=== PATIENT | female | born 1985 | race Caucasian/White ===

== ENCOUNTER 2023-09-17 09:24 | Outpatient (OUT) | payer BC, SELFPAY ==
--- NOTE | 2023-09-17 | US_ITS ---
[address] [address] Patient Name: FRANCHESCA RUIZ MRN: [id number] date: 1985 Sex: F Assigned Patient Location: US Current Patient Location: US Accession/Order Number: [id number] Exam Date: 09/17/2023 09:50 Report Date: 09/17/2023 11:48 At the request of: COLBY RAE Procedure: US pelvis transvaginal EXAMINATION: US pelvis transvaginal HISTORY: Menorrhagia with irregular cycle N92.1 COMPARISON: No relevant comparison available. TECHNIQUE: Transabdominal and/or transvaginal sonographic examination was performed as indicated by examination type. FINDINGS: UTERUS: Slightly heterogeneous myometrium. 1.5 cm slightly hyperechoic area within anterior uterine wall favoring a leiomyoma. Uterus size: 9.3 x 5.0 x 6.1 cm. ENDOMETRIUM: Normal homogeneous appearance. Trace amount of fluid within endometrial cavity, likely blood products. Endometrial thickness: 6 mm RIGHT OVARY: Normal size and appearance. Duplex Doppler demonstrates normal waveform and flow; resistive index 0.6. Ovary size: 2.7 x 2.3 x 3.67 m LEFT OVARY: Contains a 3.6 cm benign-appearing cyst. Duplex Doppler demonstrates normal waveform and flow; resistive index 0.5. Ovary size: 4.4 x 2.7 x 4.3 cm CUL-DE-SAC: Unremarkable. No significant free fluid. BLADDER: Unremarkable. OTHER: None. US/US pelvis transvaginal IMPRESSION: 1. No specific findings to account for patient's symptoms. 2. Small leiomyoma within anterior uterine wall, but this does not appear to contact the endometrial margin. 3. Incidental cyst within left ovary. Electronically authenticated by: TRACY WEBB Date: 09/17/2023 11:48
[2023-09-17 10:15] LABS: Basophils Absolute Auto 0.1 10^3/uL (0.0-0.1); Basophils Percent Auto 0.7 % (0.2-2.0); Eosinophils Absolute Auto 0.1 10^3/uL (0.0-0.7); Eosinophils Percent Auto 1.2 % (0.9-7.0); Hematocrit 35.4 % (36.0-48.0); Hemoglobin 11.6 g/dL (12.0-16.0); Immature Granulocytes Abs Auto 0.02 10^3/uL (0.00-0.03); Immature Granulocytes Pct Auto 0.3 % (0.0-0.5); Lymphocytes Absolute Auto 1.3 10^3/uL (1.2-3.8); Lymphocytes Percent Auto 18.5 % (20.5-60.0); Mean Corpuscular HGB Conc 32.8 g/dL (29.9-35.2); Mean Corpuscular Hemoglobin 30.8 pg (26.7-34.0); Mean Corpuscular Volume 93.9 fL (81.0-99.0); Mean Platelet Volume 9.1 fL (9.5-13.5); Monocytes Absolute Auto 0.6 10^3/uL (0.3-0.8); Monocytes Percent Auto 8.4 % (1.7-12.0); Neutrophils Absolute Auto 4.9 10^3/uL (1.4-6.5); Neutrophils Percent Auto 70.9 % (43.0-75.0); Platelet Count 286 10^3/uL (150-450); Red Blood Count 3.77 10^6/uL (4.20-5.40); Red Cell Distribution Width 13.2 % (11.0-15.0); White Blood Count 6.9 10^3/uL (4.0-11.0)
[2023-09-17 10:21] LABS: INR 0.96; Partial Thromboplastin Time 26.3 sec (22.3-36.2); Prothrombin Time 10.2 sec (9.0-11.6)
[2023-09-17 10:33] LABS: Estimated Average Glucose 94 mg/dL; Glycohemoglobin A1C 4.9 % (4.5-6.2)
[2023-09-17 10:44] LABS: HCG Quantitative <1 mIU/mL; Thyroid Stimulating Hormone 0.713 uIU/mL (0.358-3.740)
[2023-09-17 10:47] LABS: Free T4 0.84 ng/dL (0.76-1.46)
== END 2023-09-17 09:25 | disposition home or self-care (01) ==
PROVIDERS: PCP Internal Medicine; Visit Provider Obstetrics & Gynecology
DX: N92.1 Excessive and frequent menstruation with irregular cycle (principal); R87.619 Unspecified abnormal cytological findings in specimens from cervix uteri; B97.7 Papillomavirus as the cause of diseases classified elsewhere; N94.10 Unspecified dyspareunia; N94.6 Dysmenorrhea, unspecified; N83.292 Other ovarian cyst, left side
CPT/HCPCS: 36415; 76830; 83036; 84439; 84443; 84702; 85025; 85610; 85730

== ENCOUNTER 2023-09-20 11:57 | Outpatient (REF) | payer BC, SELFPAY | END 2023-09-20 11:58 | disposition home or self-care (01) | LOC: LAB 11:57 | PROVIDERS: PCP Internal Medicine; Visit Provider Obstetrics & Gynecology | DX: N92.0 Excessive and frequent menstruation with regular cycle (principal) | CPT/HCPCS: 88305 ==

== ENCOUNTER 2023-10-05 14:11 | Outpatient (OUT) | payer BC, SELFPAY ==
--- NOTE | 2023-10-05 14:53 | ECG_ITS ---
[facility] Test Date: 2023-10-05 Pat Name: FRANCHESCA RUIZ Department: Room: - Gender: Female Checker Product Design: : 1985 Requested By: SHAIKH RAMONA Order Number: [id number] Reading MD: SHAYNA CHADWICK Measurements Intervals [place] Rate: 65 P: 60 [place]: 179 QRS: 56 QRSD: 89 T: 51 QT: 366 QTc: 383 Interpretive Statements SINUS RHYTHM No previous ECG available for comparison Electronically Signed On 10-06-2023 6:43:55 EDT by SHAYNA CHADWICK
== END 2023-10-05 14:12 | disposition home or self-care (01) ==
PROVIDERS: PCP Internal Medicine; Visit Provider Obstetrics & Gynecology
DX: Z01.810 Encounter for preprocedural cardiovascular examination (principal); N92.0 Excessive and frequent menstruation with regular cycle; N93.9 Abnormal uterine and vaginal bleeding, unspecified; R10.2 Pelvic and perineal pain
CPT/HCPCS: 93005

== ENCOUNTER 2023-10-14 07:09 | Day surgery (SDC) | payer BC, SELFPAY ==
[2023-10-05 14:58] VITALS: BP 132/79; PULSE 74; TEMP 36.6; O2SAT 98; BMI 25.5
--- OUTSIDE RECORDS SUMMARY | 2023-10-14 07:13 | XMS_ITS | CCD ---
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 diagnostic evaluation to determine best treatment options. After patient assessment clarifies whether or not 2 AEDs tried were sufficient dosing and ineffective, this VEEG admission may potentially be considered for presurgical evaluation (phase 1.0). Summary: Onset: 33yo Recent Seizure Frequency: daily spells to 3-5 daily Seizure Description(s) Available: Type A: patient's description: Epigastric aura (butterfly feeling in the stomach) -> spaces out -> hands are shaking, unresponsive Post Episode: cannot recall the event/spell, otherwise returned to baseline Duration: a few seconds Trigger: stress Type B: per ED visit sz description, 12/30/18: takes longer for her to former thoughts. She states this usually occurs when she is under a great deal of stress or having issues with her anxiety Current AED(s): Aptiom (started 02/2019) Previous AED(s): GBP Prior Neurosurgery: NONE Implanted Medical Devices: NONE PMH: Altered mental status (ED visit, 12/30/18), Anxiety PRIOR EVALUATIONS: ? EEG (02/13/19, [facility]): per report IMPRESSION: Abnormal EEG. Multiple sharp waves localizing to right temporal lobe (T4 mostly) with a few with olebf-jvj-clha morphology. None of her typical events were captured. Concerning for underlying structural issue or temporal lobe epilepsy. ? MRI Brain W/WO contrast (02/23/19, [facility]): per report IMPRESSION: 1. Chiari I malformation. 2. Otherwise unremarkable exam. ? CT brain WO contrast (08/24/16, Between): per report IMPRESSION: Normal CT head ? CT brain WO contrast (12/19/15, Between): per report IMPRESSION: NORMAL UNENHANCED CT SCAN OF THE BRAIN. NO EVIDENCE OF AN INTRACRANIAL HEMORRHAGE OR HEMATOMA. Referring MD: Dr. Sonam Menjivar MOTHER BABY RN Recommendations: - Intake to request OSH MRI brain on CD (02/23/19, [facility]) - 3T MRI brain, epilepsy protocol - Visit with any epileptologist - Same day diagnostic EMU admission (potentially presurgical eval, if indicated by AED hx) - Epilepsy clinicians to determine f/u plan and consider further w/u, as clinically indicated. -Steve Rubin RN, MSN, C-CHARGE OUT CLERK March 16, [address] Moore for review and recommendations. PLAN (as discussed with Dr. Moore): == Normal [facility] Anai 03-13-2019 CNPN Telephone (NIQ) TANYA RUIZ ([id number]) 1985 F Date Time Provider Department 03/13/19 RUTHY MOORE During your visit today, we recorded the following information about you: Bita Briseno 03/13/2019 2:37 PM Signed [facility] Initial Intake Interview March 13, 2019 2:25 PM Caller: Tanya Relationship to pt: self === Patient name: Tanya Ruiz Age: [age] year old Address: [address] [place] [address] (home) Insurance: Payor: CIGNA / Plan: CIGNA OAP / Product Type: PPO / Referred by: Physician: Dr. Sonam Menjivar Referring to: Any Reason for Evaluation: further evaluation and treatment to determine why daily events are occurring Previously evaluated at: Dr. Sonam Menjivar [facility] [address] [facility] [place] [address] === Age AND date of onset of seizures/spells: 33 years old,; December 2018 Frequency: daily spells Prior to the spells, butterfly feeling in the stomach - space out - hands are shaking - unresponsive - duration a few second Afterwards - cannot recall the event/spell Recent injuries (within last 6 months)? No Recent surgeries (within the last 6 weeks)? No Seizure medications Current medications: - Aptiom (started February 2019) Past medications: - Gabapentin Additional medications n/a Developmental disabilities? No Previous neurosurgery? No Implants (VNS/shunt/orthodonti c hardware)? No Would patient require anaesthesia or sedation? No Additional pertinent medical information: n/a === Test Yes or No Date Facility EEG Yes 02/2019 [facility] Video EEG No MRI Yes 02/2019 [facility] fMRI No [facility] No PET No Ictal SPECT No Invasive EEG No Neuropsychological evaluation No Signed: Bita Briseno 03/13/2019 2:37 PM Addendum OSH records received: March 13, 2019 - MRI Brain report- Care Everywhere - CT Head report- Care Everywhere PENDING: - Clinical notes [place] COORD 03/15/2019 2:20 PM Signed OSH records received: March 15, 2019 -eeg PENDING: -addtl clinical notes [facility] [place] [facility] [place] [facility] 03/20/2019 12:04 PM Signed Sent medical records request to [facility] [place] [facility] [place] CO[facility] 03/23/2019 4:40 PM Signed Images were pushed [facility] [place] CO[facility] Allergies As of Date: 03/13/2019 (Not on File) Date Reviewed: Never Reviewed Reason for Visit: Future Appointment [256] Cmt: [place], Any Problem List As Of Date: 03/13/2019 (None) Encounter Status:Closed by BITA BRISENO on 03/13/19 Normal [facility] MR-MR BRAIN W WO CONT IMPORT on 02-23-2019 MR-MR BRAIN W WO CONT IMPORT Images were obtained outside of [facility] [id number] Normal [facility] Vital Signs Date Time Vital Sign Value Performing Clinician Slim austin 10-09-2019 15:15-0400 Body Temperature 98.29 [degF] [facility] [place] 10-09-2019 15:15-0400 BP Diastolic 81 mm[facility]Hg[facility] [place] 10-09-2019 15:15-0400 BP Systolic 138 mm[Hg] Evelina [facility] , [place] 10-09-2019 15:15-0400 Pulse (Heart Rate) 88 /min Evelina Rodriguez [place], [place] 10-09-2019 15:15-0400 Pulse Oximetry 99 % Evelina Rodriguez [place], [place] 10-09-2019 15:15-0400 Respiratory Rate 14 /min Evelina Rodriguez [facility] H, CARLOS EDUARDO Encounters Encounter Date Encounter Type Care Provider Facility Start: 09-20-2023 End: 09-20-2023 ambulatory COLBY KOBI Not Available Start: 09-20-2023 End: 09-20-2023 ambulatory Colby Kobi Work Phone: [facility] Work Phone: Start: 09-20-2023 End: 09-20-2023 Departed Referred Colby Chango Work Phone: [facility] Start: 08-29-2023 End: 08-29-2023 ambulatory COLBY KOBI Not Available Start: 08-01-2023 End: 08-02-2023 ambulatory ALVAREZ L FLORO Not Available Start: 07-18-2023 End: 07-18-2023 ambulatory PLUNKETT FAWWAD Not Available Start: 06-30-2023 End: 07-01-2023 ambulatory ALVAREZ L FLORO Not Available Start: 05-11-2023 End: 05-11-2023 ambulatory PLUNKETT FAWWAD Not Available Start: 01-13-2023 End: 01-13-2023 Emergency department patient visit ABBY~[id number] JANETDHAVAL [facility] Start: 07-10-2021 End: 07-10-[address] BENITA VALENTINO Facility: Start: 10-09-2019 End: 10-09-2019 Emergency department patient visit Evelina Rodriguez Work Phone: [facility] ED Plan of Treatment Date Care Activity Detail Author Start: 02-12-2020 Influenza vaccination Flu vacc ine (Season Ended) [place], [place] Start: 12-07-2008 Screening for malign ant neoplasm of cervix Cervical cancer screen [place], [place] Start: 12-07-2006 DTaP/Tdap/Td vaccine (1 - Tdap) DTaP/Tdap/Td vaccine (1 - Tdap) [place] Start: 12-07-1988 Varicella vaccine (1 of 2 - 2-dose childhood series) Varicella vaccine (1 of 2 - 2-dose childhood series) [place] End: 10-09-2019 Basic metabolic 2000 panel Basic Metabolic Panel Lab STAT One Time for 1 Occurrences starting 10/09/2019 until 10/09/2019 [place] Comment on above: One Time for 1 Occur rences starting 10/09/2019 until 10/09/2019 End: 10-09-2019 CBC CBC Lab STAT One Time for 1 Occurrences starting 10/09/2019 until 10/09/2019 [place] Comment on above: One Time for 1 Occur rences starting 10/09/2019 until 10/09/2019 End: 10-09-2019 CT PELVIS W CONTRAST Additional Contrast? None CT PELVIS W CONTRAST Additional Contrast? None Imaging Routine Once for 1 Occurrences starting 10/09/2019 until 10/09/2019 [place] Comment on above: Once for 1 Occurrenc es starting 10/09/2019 until 10/09/2019 End: 10-09-2019 HCG Qualitative, Serum HCG Qualitative, Serum Lab STAT One Time for 1 Occurrences starting 10/09/2019 until 10/09/2019 [place] Comment on above: One Time for 1 Occur rences starting 10/09/2019 until 10/09/2019 Payers Date Payer Category Payer Self-pay [id number] 2023 Unknown [id number] 2022 Unknown [id number] 2019 Unknown [facility] xxxxxxxxxxxx 2019-Present [phone] [address] [place] [address] xxxxxxxxxxxx [id number] 2014 Private Health Insurance CIGNA CIGNA HMO xxxxxxxxxxx 2014-Present [phone] [address] [place] [address] xxxxxxxxxxx [id number] 1987 Unknown [id number] 1987 Unknown [id number] .173 1987 Unknown [id number] [id number] .1259 1987 Unknown [id number] [id number] .1259 1987 Unknown [id number] [id number] .1259 1987 Unknown [id number] [id number] .1259 1987 Unknown [id number] 2.16.840.1.399329.3.579.2 .1259 1987 Unknown [id number] [id number] .1259 1959 Unknown [id number] 1959 Unknown [id number] Unknown [id number] Unknown [id number] .531 Social History Date Type Detail Facility [facility]: [facility] [place] History of tobacco use Cigarette Smoker M [place], [place] Start: 08-24-2016 Cigarettes smoked current (pack per day) - Reported [place] Start: 08-24-2016 Alcohol intake Current drinke r of alcohol (finding) [place] Start: 12-19-2015 [facility] [place] [place] Sex Assigned At Not on file [place] Exposure to SARS-CoV -2 (event) [facility] Start: 05-13-2020 Tobacco smoking stat us [facility] Ex-smoker (finding) [facility] Start: 1985 Sex Assigned At Female F [facility] Clinical Note 06-23-2022 Note Date & Type Note Facility 06-23-2022 Note HISTORY: Bone densit y screening. PROCEDURE: Imaging of the lumbar spine was obtained for bone density evaluation. FINDINGS: REGION BMD (g/cm??) YOUNG ADULT T-SCORE AGE-MATCHED Z-SCORE LUMBAR (L1-L4) 0.861 -1.7 -1.6 The mean BMD and corresponding T-score listed above indicate: Osteopenia and places the patient at a mild to moderate increased risk for fracture. There may be a future risk of developing osteoporosis. Recommend follow-up exam in 1 year, sooner as clinically necessary. Comment: The T-score is the primary focus of the interpretation of a patient???s bone mineral density measurement. The T-score is the number of standard deviations and individual is above or below the mean value for a young female having normal bone mass. The WHO defines osteoporosis based on the T-score value: +1.0 to -0.9 : Normal bone mass -1.0 to -2.5 : Osteopenia and thus may be at future risk of fracture. -2.6 to -5.0 : Osteoporosis and at significantly increased risk of fracture. IMPRESSION: OSTEOPENIA : ONE YEAR FOLLOW-UP RECOMMENDED PROCEDURE: Imaging of the bilateral hips was obtained for bone density evaluation. FINDINGS: REGION BMD (g/cm??) YOUNG ADULT T-SCORE AGE-MATCHED Z-SCORE LEFT NECK 0.764 -0.8 -0.6 RIGHT NECK 0.753 -0.9 -0.7 The mean BMD and corresponding T-score listed above indicates: Normal Bone Mass and places the patient at no significant risk for fracture. This information can serve as a baseline with which to compare future studies. Recommend follow-up exam in 2 years, sooner as clinically necessary. Comment: The T-score is the primary focus of the interpretation of a patient???s bone mineral density measurement. The T-score is the number of standard deviations and individual is above or below the mean value for a young female having normal bone mass. The WHO defines osteoporosis based on the T-score value: +1.0 to -0.9 : Normal bone mass -1.0 to -2.5 : Osteopenia and thus may be at future risk of fracture. -2.6 to -5.0 : Osteoporosis and at significantly increased risk of fracture. IMPRESSION: NORMAL BONE MASS : TWO YEAR FOLLOW-UP RECOMMENDED Report reported and signed by Kwasi Reis on 06/23/2022 1131 [facility] Shift Boss Evaluation note Note Date & Type Note Facility Evaluation note No assessment information availa [facility] Work Phone: Summary Purpose Family History No Family History Records Found Relationship Condition Age at Onset Recorded Date/T gabriel Not Specified Malignant neoplasm of colon Unknown Hypertension Unknown Hyperlipidemia Unknown father Myocardial infarction Unknown Not Specified Malignant neoplasm Unknown Advance Directives No Advanced Directives Records FoundDocuments on File Type Date Recorded Patient Reimbursement Representative Expl anation Advance Directives and Living Will Power of Veneer Cutter Advance Directive Response Recorded Date/ Time Advance Directives No April 1:23pm Hospital Course Note HNO ID: [id number] Author: Patricia Smith Service: Neurology Adult Epilepsy Author Type: Physician Type: Discharge Summary Filed: 04/10/2019 10:09 AM Note Text: DISCHARGE SUMMARY PATIENT NAME: Tanya Ruiz ADMISSION DATE: 04/05/2019 DISCHARGE DATE: 04/07/2019 ADMITTING SERVICE: Epilepsy ATTENDING PHYSICIAN: Nba Smith Code Status: Not on file Highest Readmission Risk Score: 5 The 30 day readmissions risk score is derived from an internally validated risk model which evaluates patient level characteristics, utilization history, medication orders and lab results up until the day of discharge. Patients with a score of 40 or above are considered highest risk for readmission. Specific patient level drivers will be listed at the bottom of the summary. The 30 day readmissions risk score is derived from an internally validated risk model which evaluates patient level characteristics, utilization history, medication orders and lab results up until the day of discharge. Patients with (more content not included)... Additional Source Comments INFORMATION SOURCE (unrecogn ized section and content) DATE CREATED AUTHOR 04/10/2019 [facility] DATE CREATED AUTHOR AUTHOR'S ORGANIZ ATION 01/19/2022 [facility] DATE CREATED AUTHOR AUTHOR'S ORGANIZ ATION 06/23/2022 [facility] DATE CREATED AUTHOR AUTHOR'S ORGANIZ ATION 01/14/2023 [facility] DATE CREATED AUTHOR AUTHOR'S ORGANIZ ATION 09/21/2023 [facility] EPIC DATE CREATED AUTHOR AUTHOR'S ORGANIZ ATION 09/25/2023 [facility] Reason for Visit (unrecogniz ed section and content) Reason Comments Rectal Bleeding arrives by ems from home with severe rectal pain. patient states pain started after sitting on toilet for and hour Care Teams (unrecognized sec tion and content) Team Status: Inactive Member Role Status Dates Colby Peace Attending Provider Active Start: Ap 2023 End: September 20, 2023 Goals (unrecognized section and content) Goals may be documented in a n alternate section FOR RECORDS PERTAINING TO PATIENTS WHO ARE OR HAVE BEEN ENROLLED IN A CHEMICAL DEPENDENCY/SUBSTANCEABUSE PROGRAM, SOME INFORMATION MAY BE OMITTED. This clinical summary was aggregated from multiple sources. Caution should be exercised in using it in the provision of clinical care. This summary normalizes information from multiple sources, and as a consequence, information in this document may materially change the coding, format and clinical context of patient data. In addition, data may be omitted in some cases. CLINICAL DECISIONS SHOULD BE BASED ON THE PRIMARY CLINICAL RECORDS. [employer] provides no warranty or guarantee of the accuracy or completeness of information in this document.
[2023-10-14 07:20] LABS: Basophils Absolute Auto 0.1 10^3/uL (0.0-0.1); Basophils Percent Auto 1.4 % (0.2-2.0); Eosinophils Absolute Auto 0.1 10^3/uL (0.0-0.7); Eosinophils Percent Auto 2.1 % (0.9-7.0); Hematocrit 36.1 % (36.0-48.0); Hemoglobin 12.2 g/dL (12.0-16.0); Immature Granulocytes Abs Auto 0.01 10^3/uL (0.00-0.03); Immature Granulocytes Pct Auto 0.2 % (0.0-0.5); Lymphocytes Absolute Auto 1.6 10^3/uL (1.2-3.8); Lymphocytes Percent Auto 32.4 % (20.5-60.0); Mean Corpuscular HGB Conc 33.8 g/dL (29.9-35.2); Mean Corpuscular Hemoglobin 31.4 pg (26.7-34.0); Mean Platelet Volume 8.7 fL (9.5-13.5); Monocytes Absolute Auto 0.4 10^3/uL (0.3-0.8); Monocytes Percent Auto 7.2 % (1.7-12.0); Neutrophils Absolute Auto 2.8 10^3/uL (1.4-6.5); Neutrophils Percent Auto 56.7 % (43.0-75.0); Platelet Count 305 10^3/uL (150-450); Red Blood Count 3.88 10^6/uL (4.20-5.40); White Blood Count 4.9 10^3/uL (4.0-11.0)
[2023-10-14 07:21] VITALS: BP 112/65; PULSE 69; TEMP 36.5; O2SAT 97; BMI 24.6
[2023-10-14] MEDS: LACTATED RINGER'S SOLUTION 1,000 ML 50 ML IV (07:38)
[2023-10-14 07:42] LABS: HCG Quantitative <1 mIU/mL
[2023-10-14 10:00] VITALS: BP 89/58; PULSE 64; TEMP 36.6; O2SAT 95
--- NOTE | 2023-10-14 10:02 | PM.ONB ---
Brief Operative Note Date of procedure: 10/14/23 Pre-op diagnosis general: menorrhagia Post-op diagnosis: same as pre-op Procedure: NAME OF PROCEDURE: [ ] Odalys endometrial ablation with hysteroscopy. PROCEDURE: The patient was taken back to the OR where she was prepped and draped in the normal sterile fashion after being placed in the dorsal lithotomy position, after being placed under general anesthesia without difficulty.? A weighted speculum was placed into the vagina. The anterior lip was grasped with a single tooth tenaculum. The patient was then sounded to approximated 8cm. The patient?s cervix was gently dilated using hegardilators. The hysteroscope was passed through the cervix into the uterus where both ostia were seen. No gross evidence of polyps, fibroids or malignancy. The cervical length was noted to be 4 cm. The total cavity length is 4cm.? The Odalys ablation apparatus was set to approximately 4cm in length. This was placed through the cervix and into the uterus. After the seal was tested, at that time the total ablation of 120 seconds was performed with the Odalys withoutdifficulty. All instruments were removed from the vagina. Excellent hemostasis noted.? Sponge and lap count correct times 2.? Patient taken to recovery in stable condition. Anesthesia: MAC Surgeon: Marky Peace Estimated blood loss (mL): 5 Pathology: none sent Condition: stable Disposition: PACU Urinary Catheter Management Urinary Catheter Management Urethral: Cath placed during this visit: no
[2023-10-14 10:15] VITALS: BP 94/55; PULSE 57; O2SAT 96
[2023-10-14 10:30] VITALS: BP 100/70; PULSE 58; O2SAT 98
[2023-10-14] MEDS: LACTATED RINGER'S SOLUTION 1,000 ML 150 ML IV (10:34)
--- NOTE | 2023-10-14 10:55 | PC.NURSE ---
1050: pt voids without difficulty.
[2023-10-14 11:00] VITALS: BP 105/64; PULSE 56; O2SAT 99
== END 2023-10-14 11:00 | disposition home or self-care (01) ==
PROVIDERS: PCP Internal Medicine; Visit Provider Obstetrics & Gynecology
PROC: (CPT 952; principal; 2023-10-14 08:30)
DX: N92.0 Excessive and frequent menstruation with regular cycle (principal); N93.9 Abnormal uterine and vaginal bleeding, unspecified; R10.2 Pelvic and perineal pain; G40.909 Epilepsy, unspecified, not intractable, without status epilepticus; F41.1 Generalized anxiety disorder; Z86.010 Personal history of colon polyps; F32.A Depression, unspecified; Z87.891 Personal history of nicotine dependence
CPT/HCPCS: 58563; 36415; 84702; 85025; J1094; J2704

== ENCOUNTER 2024-10-04 12:03 | Outpatient (OUT) | payer BC, SELFPAY ==
--- NOTE | 2024-10-04 12:52 | XR_ITS ---
The [address] [address] Patient Name: FRANCHESCA RUIZ MRN: [id number] date: 1985 Sex: F Assigned Patient Location: [facility] Current Patient Location: [facility] Accession/Order Number: [id number] Exam Date: 10/04/2024 13:56 Report Date: 10/04/2024 13:57 At the request of: COLBY RAE DO Procedure: XR chest 2V Chest 2 views CLINICAL HISTORY: Preop exam COMPARISON: None FINDINGS: Heart normal size. Lungs are clear. No free air. XR/XR chest 2V IMPRESSION: NO ACUTE CARDIOPULMONARY ABNORMALITY. Impression dictated by: Jessica Alatorre Jr.OMinerva10/04/2024 1:57 PM Dictation Location: [place] [address] Electronically authenticated by: [id number] Date: 10/04/2024 13:57
[2024-10-04 13:12] LABS: Basophils Absolute Auto 0.1 10^3/uL (0.0-0.1); Basophils Percent Auto 0.8 % (0.2-2.0); Eosinophils Percent Auto 0.6 % (0.9-7.0); Hematocrit 36.1 % (36.0-48.0); Hemoglobin 12.1 g/dL (12.0-16.0); Immature Granulocytes Abs Auto 0.01 10^3/uL (0.00-0.03); Immature Granulocytes Pct Auto 0.2 % (0.0-0.5); Lymphocytes Absolute Auto 1.5 10^3/uL (1.2-3.8); Lymphocytes Percent Auto 22.8 % (20.5-60.0); Mean Corpuscular HGB Conc 33.5 g/dL (29.9-35.2); Mean Corpuscular Hemoglobin 31.3 pg (26.7-34.0); Mean Corpuscular Volume 93.3 fL (81.0-99.0); Mean Platelet Volume 9.1 fL (9.5-13.5); Monocytes Absolute Auto 0.5 10^3/uL (0.3-0.8); Monocytes Percent Auto 7.1 % (1.7-12.0); Neutrophils Absolute Auto 4.4 10^3/uL (1.4-6.5); Neutrophils Percent Auto 68.5 % (43.0-75.0); Platelet Count 249 10^3/uL (150-450); Red Blood Count 3.87 10^6/uL (4.20-5.40); Red Cell Distribution Width 12.5 % (11.0-15.0); White Blood Count 6.4 10^3/uL (4.0-11.0)
[2024-10-04 13:25] LABS: Alanine Aminotransferase 20 U/L (14-59); Albumin Globulin Ratio 1.5; Albumin Level 3.8 g/dL (3.4-5.0); Alkaline Phosphatase 53 U/L (46-116); Aspartate Amino Transferase 10 U/L (15-37); BUN Creatinine Ratio 15.4; Bilirubin Direct 0.1 mg/dL (0.0-0.2); Bilirubin Total 0.2 mg/dL (0.2-1.0); Calcium 8.6 mg/dL (8.5-10.1); Carbon Dioxide 28.8 mmol/L (21.0-32.0); Chloride 103 mmol/L (98-107); Estimated GFR (African America >60 (>=60 mL/min/1.73m^2); Estimated GFR (Non-African Ame >60 (>=60 mL/min/1.73m^2); Globulin 2.6 g/dL; Glucose 83 mg/dL (74-106); Potassium 3.8 mmol/L (3.5-5.1); Sodium 138 mmol/L (136-145); Total Protein 6.4 g/dL (6.4-8.2)
[2024-10-04 13:28] LABS: INR 1.04; Partial Thromboplastin Time 28.1 sec (22.3-36.2)
== END 2024-10-04 12:04 | disposition home or self-care (01) ==
LOC: PST 12:05
PROVIDERS: Visit Provider Obstetrics & Gynecology
DX: Z01.810 Encounter for preprocedural cardiovascular examination (principal); Z01.812 Encounter for preprocedural laboratory examination; N92.1 Excessive and frequent menstruation with irregular cycle; R10.2 Pelvic and perineal pain; N94.6 Dysmenorrhea, unspecified; N94.10 Unspecified dyspareunia; N93.9 Abnormal uterine and vaginal bleeding, unspecified
CPT/HCPCS: 71046; 80048; 80076; 85025; 85610; 85730; 86850; 86900; 86901

== ENCOUNTER 2024-10-11 11:07 | Inpatient (IN) | payer BC, SELFPAY ==
[2024-10-04 12:41] VITALS: BP 110/70; PULSE 66; TEMP 36.8; O2SAT 100; BMI 23.7
[2024-10-11] VITALS (19 sets, daily range): BP systolic 81–140; BP diastolic 49–80; PULSE 58–92; TEMP 36.3–36.6; O2SAT 90–100; BMI 23.7
[2024-10-11 11:16] LABS: Basophils Absolute Auto 0.1 10^3/uL (0.0-0.1); Basophils Percent Auto 1.1 % (0.2-2.0); Eosinophils Absolute Auto 0.1 10^3/uL (0.0-0.7); Eosinophils Percent Auto 1.3 % (0.9-7.0); Hematocrit 36.3 % (36.0-48.0); Hemoglobin 12.4 g/dL (12.0-16.0); Immature Granulocytes Abs Auto 0.01 10^3/uL (0.00-0.03); Immature Granulocytes Pct Auto 0.2 % (0.0-0.5); Lymphocytes Absolute Auto 1.4 10^3/uL (1.2-3.8); Lymphocytes Percent Auto 30.4 % (20.5-60.0); Mean Corpuscular HGB Conc 34.2 g/dL (29.9-35.2); Mean Corpuscular Hemoglobin 32.2 pg (26.7-34.0); Mean Corpuscular Volume 94.3 fL (81.0-99.0); Mean Platelet Volume 8.8 fL (9.5-13.5); Monocytes Absolute Auto 0.4 10^3/uL (0.3-0.8); Neutrophils Absolute Auto 2.7 10^3/uL (1.4-6.5); Platelet Count 265 10^3/uL (150-450); Red Blood Count 3.85 10^6/uL (4.20-5.40); Red Cell Distribution Width 12.6 % (11.0-15.0); White Blood Count 4.6 10^3/uL (4.0-11.0)
[2024-10-11] MEDS: LACTATED RINGER'S SOLUTION 1,000 ML 50 ML IV (11:38)
[2024-10-11 12:10] LABS: HCG Quantitative <1 mIU/mL
[2024-10-11] MEDS: 0.9 % SODIUM CHLORIDE 1,000 ML 50 ML IV ×2 (12:20→14:27)
[2024-10-11] MEDS: CEFAZOLIN SODIUM 1 GM/50 ML D5W PREMIX IV (12:44)
--- NOTE | 2024-10-11 14:49 | PM.ONB ---
Brief Operative Note Date of procedure: 10/11/24 Pre-op diagnosis general: pelvic pain, dysmenorrhea, dyspareunia, aub Post-op diagnosis: same as pre-op Procedure: NAME OF PROCEDURE: [ ]Total abdominal hysterectomy, bilateral salpingectomy with cystoscopy. unable to attempt robotic hysterectomy, pt could not tolerate trendelenburg dt arnold chiari malformation PROCEDURE: Patient was taken back to the Operating Room where she was given general anesthesia without difficulty. She was then prepped and draped in the normal sterile fashion. A Pfannenstiel skin incision was then made 2 cm above the symphysis and pubis and carried down to underlying rectus fascia using a Bovie. The fascia was incised in the midline and extended bilaterally using Orona scissors. Two May clamps were placed on the superior aspect of the fascia and dissected off the underlying rectus muscle. The same was performed on the inferior aspect as well. The muscle was then in the midline. The peritoneum was identified and entered bluntly. Peritoneum was then extended superiorly and inferiorly with good visualization of the bladder. An O'Acsjskam-I-Zgbjfg retractor was placed into the patient's abdomen. The bowel was packed away with moist laparotomy sponges and the bladder blade was inserted. A Leahey tenaculum was placed on the patient's uterus and used for retraction. LigaSure apparatus was then used to come across the mesosalpingx from the fimbriated end to the uteroovarian ligament on the patient's right side which was then cauterized and transected. This wascarried down serially through the broad ligament and across the round ligament. The bladder flap was then created using the Metzenbaum scissors, and the bladder was easily dissected off the patient's lower uterine segment. A curved Britton was placed across the uterine artery on the right side which was clamped, transected, and suture ligated using #0 Monocryl. This was performed on the contralateral side as well. The bladder was further dissected and a Zeppelin clamp was then placed across the uterosacral and cardinal ligaments. This was transected and suture ligated using #0 Monocryl. This was performed on the contralateral side as well. The uterus was then amputated using Dannie scissors. The patient's cuff was closed using #0 PDS in a running locked fashion and this was transfixed to the ipsilateral uterosacral and cardinal ligaments. Excellent hemostasis was assured. The patient's abdomen was copiously irrigated using warm saline. Cystoscopy was performed. Bladder was intact. Efflux was noted from both ostia. Cystoscope was removed.After excellent hemostasis was assured, all instruments were removed from the patient's abdomen. The patient's peritoneum was closed using 3-0 Vicryl in a running fashion. The patient's fascia was closed using #0 Vicryl in a running fashion. The patient's skin was closed using 4-0 vicryl on a stan needle. The patient tolerated the procedure well. Sponge, lap, and needle counts were correct times two. Patient taken to the Recovery Room in stable condition Anesthesia: JOSE Surgeon: Marky Peace Gas Appliance Servicer: Ashley Cannon Estimated blood loss (mL): 100 Pathology: other (tubes, uterus and cervix) Condition: stable Disposition: PACU Urinary Catheter Management Urinary Catheter Management Urethral: Cath placed during this visit: no
[2024-10-11] MEDS: HYDROMORPHONE HCL 0.5 MG/0.5 ML SYRINGE IV ×2 (15:10→15:20)
[2024-10-11] MEDS: OXYCODONE HCL/ACETAMINOPHEN 5MG/325MG 2 TAB PO (15:31)
[2024-10-11] MEDS: LACTATED RINGER'S SOLUTION 1,000 ML 125 ML IV (15:49)
[2024-10-11] MEDS: KETOROLAC TROMETHAMINE 30 MG/ML VIAL IVP (20:03)
[2024-10-11] MEDS: SIMETHICONE 80 MG TAB.CHEW PO (20:03)
[2024-10-11] MEDS: ONDANSETRON PF 4 MG/2 ML VIAL IV (20:03)
[2024-10-11] MEDS: OXcarbazepine 300 MG TABLET 450 MG PO (20:03)
[2024-10-11] MEDS: CEFAZOLIN SODIUM/DEXTROSE,ISO 2 GM/50 ML PIGGYBACK IV (20:04)
[2024-10-11] MEDS: PROMETHAZINE HCL 12.5 MG in 0.9 % SODIUM CHLORIDE 50 ML 202 MG IV (22:45)
[2024-10-11] MEDS: HYDROMORPHONE HCL 1 MG/ML CARTRIDGE IV (22:47)
[2024-10-12] MEDS: CEFAZOLIN SODIUM/DEXTROSE,ISO 2 GM/50 ML PIGGYBACK IV (02:06)
[2024-10-12 05:14] LABS: Mean Corpuscular HGB Conc 33.3 g/dL (29.9-35.2); Mean Corpuscular Hemoglobin 31.9 pg (26.7-34.0); Mean Corpuscular Volume 95.7 fL (81.0-99.0); Mean Platelet Volume 9.1 fL (9.5-13.5); Platelet Count 265 10^3/uL (150-450); Red Blood Count 2.82 10^6/uL (4.20-5.40); Red Cell Distribution Width 12.9 % (11.0-15.0); White Blood Count 9.9 10^3/uL (4.0-11.0)
[2024-10-12 05:15] VITALS: BP 94/54; PULSE 71; TEMP 37.4; O2SAT 96
[2024-10-12 05:32] LABS: Band Neutrophils Absolute 0.7 10^3/uL (0.0-0.3); Segmented Neut Absolute Manual 8.51 10^3/uL (1.4-6.5)
[2024-10-12 05:33] LABS: Lymphocytes Absolute Manual 0.69 10^3/uL (1.20-3.80); Monocytes Absolute Manual 0.69 10^3/uL (0.30-0.80)
[2024-10-12] MEDS: ONDANSETRON PF 4 MG/2 ML VIAL IV (05:34)
[2024-10-12] MEDS: OXYCODONE HCL/ACETAMINOPHEN 5MG/325MG 2 TAB PO ×2 (05:34→10:39)
[2024-10-12] MEDS: KETOROLAC TROMETHAMINE 30 MG/ML VIAL IVP ×2 (05:34→13:50)
[2024-10-12] MEDS: SIMETHICONE 80 MG TAB.CHEW PO (05:39)
[2024-10-12] MEDS: IBUPROFEN 400 MG TABLET 800 MG PO ×2 (07:03→13:50)
[2024-10-12 07:28] VITALS: BP 94/57; PULSE 86; TEMP 37.2; O2SAT 94
--- NOTE | 2024-10-12 09:03 | P.GYNPN_ITS ---
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 Post-Op Subjective: patient reports feeling better, patient has no complaints, patient desires discharge, pain is well controlled and patient is tolerating oral intake Exam Constitutional Vital Signs, click to edit/add: Last Vital Signs Temp 98.9 F 10/12/24 07:28 Pulse 86 10/12/24 07:28 Resp 16 10/12/24 07:28 BP 94/57 10/12/24 07:28 Pulse Ox 94 L 10/12/24 07:28 O2 Del Method Room Air 10/12/24 07:28 O2 Flow Rate 2 10/11/24 23:51 Documenting provider has reviewed patient's vital signs: yes Common normals: no apparent distress Respiratory Common normals: normal respiratory effort and clear to auscultation bilaterally Cardio Common normals: regular rate and regular rhythm GI Common normals: Normal to inspection, nondistended, normoactive bowel sounds present Extremity Common normals: no clubbing, cyanosis or edema and no calf tenderness Results Labs Labs: Short CBC 10/11/24 10/12/24 Range/Units 11:10 05:01 WBC 4.6 9.9 (4.0-11.0) 10^3/uL Hgb 12.4 9.0 L (12.0-16.0) g/dL Hct 36.3 27.0 L (36.0-48.0) % Plt Count 265 265 (150-450) 10^3/uL ROLLER MACHINE OPERATOR - A/P Postoperative Procedures: Procedures Operation Date: 10/11/24 12:30 Actual Procedure Side Surgeon p Total abdominal hysterectomy, (converted from robot due to inability to tolerate trendelenburg) bilateral salpingectomy, Cystoscopy Not Applicable Marky Peace DO Postoperative day: 1 Postoperative status ROLLER MACHINE OPERATOR: doing well Post-operative plan ROLLER MACHINE OPERATOR: routine post-op care and discharge Fall Risk Details Pearce fall scale risk level: Moderate Fall Risk Current medications: Current Medications Docusate Sodium (Docusate Sodium 100 Mg Capsule) 100 mg PO BID PRN PRN Reason: Constipation Enoxaparin Sodium (Enoxaparin Sodium 40 Mg/0.4 Ml Syringe) 40 mg SUBQ Q24H MATEO Hydromorphone HCl (Hydromorphone Hcl 1 Mg/Ml Cartridge) 1 mg IV Q3H PRN PRN Reason: Breakthrough Pain Last Admin: 10/11/24 22:47 Dose: 1 mg Sodium Chloride (Sodium Chloride 0.9% 1,000 Ml) 1,000 mls @ 50 mls/hr IV .Q20H [facility] Last Infusion: 10/12/24 08:00 Dose: Infused Lactated Ringer's (Lactated Ringers) 1,000 mls @ 125 mls/hr IV .Q8H [facility] Last Admin: 10/12/24 07:58 Dose: Not Given Ibuprofen (Ibuprofen 400 Mg Tablet) 800 mg PO Q6H PRN PRN Reason: Pain Last Admin: 10/12/24 07:03 Dose: 800 mg Ketorolac Tromethamine (Ketorolac Tromethamine 30 Mg/Ml Vial) 30 mg IVP Q6H PRN PRN Reason: Pain Last Admin: 10/12/24 05:34 Dose: 30 mg Cenobamate [Xcopri] (150 Mg Tablet) 150 mg PO Q24H [facility] Last Admin: 10/11/24 20:11 Dose: 150 mg Ondansetron HCl (Ondansetron Pf 4 Mg/2 Ml Vial) 4 mg IV Q6H PRN PRN Reason: Nausea Last Admin: 10/12/24 05:34 Dose: 4 mg Oxcarbazepine (Oxcarbazepine 300 Mg Tablet) 450 mg PO BID [facility] Last Admin: 10/11/24 20:03 Dose: 450 mg Oxycodone/Acetaminophen (Oxycodone Hcl/Acetaminophen 5mg/325mg) 2 tab PO Q6H PRN PRN Reason: Pain Last Admin: 10/12/24 05:34 Dose: 2 tab Oxycodone/Acetaminophen (Oxycodone Hcl/Acetaminophen 5mg/325mg) 1 tab PO Q6H PRN PRN Reason: Pain Simethicone (Simethicone 80 Mg Tab.Chew) 80 mg PO PCHS PRN PRN Reason: Abdominal Distention Last Admin: 10/12/24 05:39 Dose: 80 mg Temazepam (Temazepam 15 Mg Capsule) 30 mg PO QHS PRN PRN Reason: Sleep Time Spent With Patient Time: Total time spent is greater than 50% in coordination of care (as documented) at patient's floor/unit and/or counseling patient: Time with patient: less than 15 minutes Urinary Catheter Management Urinary Catheter Management Urethral: Cath placed during this visit: no
[2024-10-12] MEDS: DOCUSATE SODIUM 100 MG CAPSULE PO (10:38)
[2024-10-12] MEDS: MAGNESIUM HYDROXIDE 2,400 MG/10 ML ORAL.SUSP 2400 MG PO (10:38)
[2024-10-12] MEDS: OXcarbazepine 300 MG TABLET 450 MG PO (10:40)
[2024-10-12 12:00] VITALS: BP 96/55; PULSE 82; TEMP 36.9; O2SAT 97
--- NOTE | 2024-10-12 14:24 | DS_ITS ---
DISCHARGE DATE: ??10/12/2024 ? PRIMARY DIAGNOSES: 1.? Pelvis pain. 2.? Dysmenorrhea. 3.? Dyspareunia. 4.? Abnormal uterine bleeding. ? PROCEDURE:? Total abdominal hysterectomy, bilateral salpingectomy with cystoscopy. ? HOSPITAL COURSE:? As expected.? Please see chart for full details.? ? LABORATORY DATA:? Please see chart. ? COMPLICATIONS:? None. ? DISCHARGE CONDITION:? Stable. ? CONSULTATION:? Anesthesia. ? DISCHARGE INSTRUCTIONS: 1.? Diet:? Regular. 2.? Medications: a.? Percocet 5/325 one to two p.o. every 4-6 hours p.r.n. pain. b.? Motrin 800 one p.o. every 8 hours p.r.n. pain. 3.? Followup in one week.Restrictions:? Pelvic rest for 6 weeks.? No heavy lifting.? May drive when pain free and no longer on narcotics. [facility]
== END 2024-10-12 14:24 | disposition home or self-care (01) | DRG 742 ==
LOC: SURGOUT 14:56 → MS 10-12 07:32 → SURGOUT 10-12 07:49 → MS 10-12 07:49
PROVIDERS: Admitting Provider Obstetrics & Gynecology; Visit Provider Obstetrics & Gynecology
PROC: 0UT90ZZ Resection of Uterus, Open Approach (ICD-10-PCS; principal; 2024-10-11 12:30)
DX: N94.6 Dysmenorrhea, unspecified (principal); G93.5 Compression of brain; G40.109 Localization-related (focal) (partial) symptomatic epilepsy and epileptic syndromes with simple partial seizures, not intractable, without status epilepticus; N92.1 Excessive and frequent menstruation with irregular cycle; R10.2 Pelvic and perineal pain; N93.9 Abnormal uterine and vaginal bleeding, unspecified; N94.10 Unspecified dyspareunia; F41.1 Generalized anxiety disorder; I34.1 Nonrheumatic mitral (valve) prolapse; G43.109 Migraine with aura, not intractable, without status migrainosus; Z79.899 Other long term (current) drug therapy; Z88.8 Allergy status to other drugs, medicaments and biological substances; Z87.891 Personal history of nicotine dependence; Z80.0 Family history of malignant neoplasm of digestive organs
CPT/HCPCS: 36415; 80183; 84702; 85007; 85025; 85027; 94667; 94668; J0131; J0690; J1100; J1171; J1885; J2250; J2371; J2405; J2550; J2704; J3010

== ENCOUNTER 2024-10-16 16:22 | Outpatient (OUT) | payer BC, SELFPAY ==
[2024-10-16 16:36] LABS: Basophils Percent Auto 0.6 % (0.2-2.0); Eosinophils Absolute Auto 0.1 10^3/uL (0.0-0.7); Eosinophils Percent Auto 1.6 % (0.9-7.0); Hemoglobin 7.8 g/dL (12.0-16.0); Immature Granulocytes Abs Auto 0.03 10^3/uL (0.00-0.03); Immature Granulocytes Pct Auto 0.4 % (0.0-0.5); Lymphocytes Absolute Auto 0.9 10^3/uL (1.2-3.8); Lymphocytes Percent Auto 12.6 % (20.5-60.0); Mean Corpuscular HGB Conc 33.2 g/dL (29.9-35.2); Mean Corpuscular Volume 96.3 fL (81.0-99.0); Mean Platelet Volume 8.7 fL (9.5-13.5); Monocytes Absolute Auto 0.6 10^3/uL (0.3-0.8); Monocytes Percent Auto 8.6 % (1.7-12.0); Neutrophils Absolute Auto 5.1 10^3/uL (1.4-6.5); Neutrophils Percent Auto 76.2 % (43.0-75.0); Platelet Count 260 10^3/uL (150-450); Red Blood Count 2.44 10^6/uL (4.20-5.40); White Blood Count 6.7 10^3/uL (4.0-11.0)
[2024-10-16 17:27] LABS: Hematocrit 23.5 % (36.0-48.0)
== END 2024-10-16 16:23 | disposition home or self-care (01) ==
LOC: LAB 16:23
PROVIDERS: Visit Provider Obstetrics & Gynecology
DX: Z48.89 Encounter for other specified surgical aftercare (principal); Z90.710 Acquired absence of both cervix and uterus
CPT/HCPCS: 36415; 85025

== ENCOUNTER 2024-10-22 19:58 | Emergency (ER) | payer BC, SELFPAY ==
[2024-10-22] VITALS (14 sets, daily range): BP systolic 102–129; BP diastolic 56–74; PULSE 90–99; TEMP 36.6–36.9; O2SAT 96–100; BMI 23.7
--- NOTE | 2024-10-22 20:15 | PC.NURSE ---
Surgical site steri stripped without S/S of infection
--- OUTSIDE RECORDS SUMMARY | 2024-10-22 20:18 | XMS_ITS | CCD ---
Author Organization [facility] Care Team Providers Care Can Closing Machine Operator Name Role Phone Taiwo Marcum Primary Care Provider PAY, DR JOY Admitting Unavailable PAY, DR JOY Attending Unavailable SHAIKH Mary OSEI Primary Care Unavailable PAY, DR JOY Consulting Unavailable ABBY PRUITT~[id number] ROBY Attending Unavailable SHAIKH OSEI Primary Care Unavailable Marky Peace Attending Provider Shaikh Osei MD Unavailable Shaikh Osei MD Primary Care Provider [phone] HELIO SUTTON Referring Unavailable NO PCP, NO PCP Primary Care Unavailable NO PCP, NO PCP Primary Care Unavailable MARIA E MEZA Attending Unavailable YAW PATEL Attending Unavailable NO PCP, NO PCP Primary Care Unavailable HELIO SUTTON Referring Unavailable SHAIKH OSEI Primary Care Unavailable HELIO SUTTON Referring Unavailable SHAIKH OSEI Primary Care Unavailable Unallocated , Noms Provider Primary Care Provi bisi Marky Peace DO Attending Provider Marky Peace Attending Unavailable Marky Peace Admitting Unavailable MARKY PEACE Attending Unavailable BLUE GERMAIN Attending Unavailable MARKY PEACE Attending Unavailable MARKY PEACE Attending Unavailable Allergies Allergy Classification Reported Allergen(s) Allergy Type Date of Onset Reaction(s) Facility (13 sources) buPROPion Drug Allergy 10-09-2019 Palpitations [place], [place] (1 source) buPROPion Drug Allergy 07-10-2021 [facility] Repository (1 source) buPROPion; Translations: [BUPROPION HCL] Drug Allergy 12-30-2018 [facility] Repository Medications Current Medications Medication Drug Class(es) Dates Sig (Normalized) Sig (Original) acetaminophen 325 mg / butalbital 50 mg / caffeine 40 mg oral tablet (1 source) Barbiturate, Central Nervous System Stimulant, Methylxanthine Start: 12-19-2015 take 1 tablet by mouth every four hours as needed for headache butalbital-acetam inophen-caffeine (FIORICET) 50-325-40 MG per tablet Take 1 tablet by mouth every 4 hours as needed for Headaches 15 tablet 0 12/19/2015 Active busPIRone hydrochloride 30 mg oral tablet (2 sources) Start: 05-13-2020 take 1 tablet by mouth once daily Buspirone 30 mg tablet Active 30 MG PO Daily May 13, 2020 1:00am cenobamate 150 mg oral tablet (12 sources) take 1 tablet by mouth once daily Cenobamate (Xcopri) 150 MG tablet Take 150 mg by mouth 1 (one) time each day. Active Cenobamate (XCOPRI, 350 MG DAILY DOSE, PO) (9 sources) take 350 mg by mouth once daily Cenobamate (XCOPRI, 350 MG DAILY DOSE, PO) Take by mouth Active citalopram 10 mg oral tablet (1 source) Serotonin Reuptake Inhibitor take 1 tablet by mouth once daily citalopram (CELEXA) 10 MG tablet Take 10 mg by mouth daily 0 Active 1.5 ml fremanezumab-vfrm 150 mg/ml auto-injector (11 sources) Start: 05-04-2024 inject 225 mg by subcutaneous injection every 30 days Ajovy 225 MG/1.5ML auto-injector Inject 225 mg under the skin every 30 (thirty) days 05/04/2024 Active indomethacin 50 mg oral capsule (12 sources) Nonsteroidal Anti-inflammatory Drug Start: 07-27-2022 take 1 capsule by mouth in the morning indomethacin (Indocin) 50 MG capsule Take 50 mg by mouth in the morning and 50 mg in the evening. Take with meals. 07/27/2022 Active Magnesium (6 sources) Start: 05-13-2020 take 1 tablet by mouth once daily Magnesium 250 mg Tablet Active 250 MG PO Daily May 13, 2020 1:00am Start: 05-13-2020 take 250 mg by mouth once randall y Magnesium Active 250 MG PO Daily May 13, 2020 1:00am End: 09-12-2024 take 1 capsule by mouth once daily Magnesium 400 MG capsule Take 400 mg by mouth 1 (one) time each day. 09/12/2024 Discontinued take 1 capsule by mo ut once daily Magnesium 400 MG capsule Take 400 mg by mouth 1 (one) time each day. Active Norgestrel-Ethinyl Estradiol (LOW-OGESTREL PO) (1 source) Norgestrel-Ethin yl Estradiol (LOW-OGESTREL PO) Take by mouth daily. 0 Active ondansetron 4 mg oral tablet (1 source) Serotonin-3 Receptor Antagonist Start: 015 take 1 tablet by mouth every eight hours as needed for nausea ondansetron (ZOFRAN) 4 MG tablet Take 1 tablet by mouth every 8 hours as needed for Nausea or Vomiting. 12 tablet 0 09/17/2014 Active OXcarbazepine 150 mg oral tablet (14 sources) Anti-epileptic Agent Start: 020 take 1 tablet by mouth once daily Oxcarbazepine (Trileptal) 150 mg Tablet Active 150 MG PO Daily May 13, 2020 1:00am take 1 tablet [facility] Tri[facility]al 300 MG tablet Take 300 mg by mouth in the morning and 300 mg before bedtime. Active SUMAtriptan 50 mg oral tablet (12 sources) Serotonin-1b and Serotonin-1d Receptor Agonist Start: 04-28-2023 take 1 tablet by mouth once SUMAtriptan (Imitrex) 50 MG tablet Take 50 mg by mouth 1 (one) time if needed for migraine. 04/28/2023 Active Zinc (6 sources) Start: 05-13-2020 take 1 tablet by mouth once daily Zinc 50 mg Tablet Active 50 MG PO Daily May 13, 2020 1:00am Start: 05-13-2020 take 50 mg by mouth once daily Zinc Active 50 MG PO Daily May 13, 2020 1:00am End: 09-12-2024 take 1 tablet by mouth in the morning zinc 50 MG tablet Take 50 mg by mouth in the morning. 09/12/2024 Discontinued take 1 tablet by ricardo th in the morning zinc 50 MG tablet Take 50 mg by mouth in the morning. Active Problems Active Problems Problem Classification Problem Date Documented Date Episodic/Chronic Abdominal pain (4 sources) Pain in female pelvis; Translations: [Pelvic and perineal pain] Onset: 09-24-2024 07-24-2024 Episodic Administrative/social admission (1 source) Patient encounter status; Translations: [Other specified counseling] 07-24-2024 Episodic Anxiety disorders (20 sources) Generalized anxiety disorder; Translations: [Generalized anxiety disorder] Onset: 05-11-2023 05-11-2023 Chronic Complications of surgical procedures or medical care (2 sources) Postoperative fever; Translations: [Postprocedural fever] 10-16-2024 Episodic Epilepsy; convulsions (20 sources) Partial epilepsy with impairment of consciousness; Translations: [Localization-related (focal) (partial) symptomatic epilepsy and epileptic syndromes with complex partial seizures, intractable, without status epilepticus] Onset: 03-16-2019 05-11-2023 Chronic Headache; including migraine (20 sources) Migraine with aura; Translations: [Migraine with aura, not intractable, without status migrainosus] Onset: 05-11-2023 05-11-2023 Chronic Headache; including migraine (1 source) Headache; including migraine; Translations: [Headache, unspecified] Onset: 03-21-2024 Heart valve disorders (12 sources) Mitral valve prolapse; Translations: [Nonrheumatic mitral (valve) prolapse] Onset: 05-11-2023 05-11-2023 Chronic Menstrual disorders (15 sources) Menorrhagia; Translations: [Excessive and frequent menstruation with regular cycle] Onset: 08-29-2023 08-29-2023 Chronic Mood disorders (12 sources) Moderate recurrent major depression; Translations: [Major depressive disorder, recurrent, moderate] Onset: 05-11-2023 05-11-2023 Chronic Other aftercare (2 sources) Postoperative visit; Translations: [Encounter for other specified surgical aftercare] 10-16-2024 Episodic Other connective tissue disease (1 source) Pain in left lower leg; Translations: [Pain in left lower leg] Onset: 01-13-2023 Episodic Other female genital disorders (4 sources) Abnormal uterine and vaginal bleeding, unspecified; Translations: [ABNORMAL UTERINE VAGINAL BLEED UNS] Onset: 07-10-2021 Chronic Other female genital disorders (13 sources) Pain in female genitalia on intercourse; Translations: [Unspecified dyspareunia] Onset: 08-29-2023 08-29-2023 Chronic Other female genital disorders (2 sources) Abnormal uterine bleeding; Translations: [Abnormal uterine and vaginal bleeding, unspecified] 07-24-2024 Chronic Other nervous system disorders (12 sources) Chiari malformation type I; Translations: [Compression of brain] Onset: 05-11-2023 05-11-2023 Chronic Other nervous system disorders (2 sources) Acute postoperative pain; Translations: [Other acute postprocedural pain] 10-16-2024 Episodic Substance-related disorders (12 sources) Nicotine dependence; Translations: [Nicotine dependence, unspecified, uncomplicated] Onset: 04-06-2019 07-18-2023 Chronic Unclassified (1 source) groin pain Onset: 09-24-2024 Past or Other Problems Problem Classification Problem Date Documented Da te Episodic/Chronic Genitourinary symptoms and ill-defined conditions (12 sources) Increased frequency of urination; Translations: [Frequency of micturition] Onset: 05-11-2023 05-11-2023 Episodic Hemorrhoids (20 sources) External hemorrhoids; Translations: [Residual hemorrhoidal skin tags] Onset: 05-11-2023 05-11-2023 Episodic Other and unspecified benign neoplasm (12 sources) Polyp of colon; Translations: [Polyp of colon] Onset: 05-11-2023 05-11-2023 Episodic Other circulatory disease (12 sources) Elevated blood-pressure reading without diagnosis of hypertension; Translations: [Elevated blood-pressure reading, without diagnosis of hypertension] Onset: 05-11-2023 05-11-2023 Episodic Other gastrointestinal disorders (1 source) Constipation, unspecified; Translations: [Constipation, unspecified] Onset: 05-14-2024 Episodic Other screening for suspected conditions (not mental disorders or infectious disease) (12 sources) Abnormal cervical Papanicolaou smear; Translations: [Unspecified abnormal cytological findings in specimens from cervix uteri] Onset: 08-29-2023 08-29-2023 Episodic Residual codes; unclassified (1 source) Other specified postprocedural states; Translations: [OTH SPECIFIED POSTPROCEDURAL STATES] Onset: 07-13-2021 Episodic Residual codes; unclassified (12 sources) Disturbance of consciousness; Translations: [Transient alteration of awareness] Onset: 07-18-2023 07-18-2023 Episodic Viral infection (20 sources) Human papilloma virus infection; Translations: [Papillomavirus as the cause of diseases classified elsewhere] Onset: 05-11-2023 Resolved: 07-18-2023 08-29-2023 Episodic Results Test Name Value Interpretation Reference Range Facility PATHOLOGY REQUEST FOR LAB CO RPon 10-17-2024 PATHOLOGY REQUEST FOR LAB KARY [facility] Comment on above: See report. Scanned copy available in EMR. UTERUS, CERVIX, BILATERAL FALLOPIAN TUBES [facility] Healthcar e ALL CBC WITH AUTO DIFFon BASOPHILS ABSOLUTE AUTO 0 [facility] Basophils/100 WBC (Bld) 0.6 % 0.2 - 2.0 % [facility] Eosinophils/100 WBC (Bld) 1.6 % 0.9 - 7.0 % [facility] Erythrocyte distribution width (RBC) [Ratio] 13 % 11.0 - 15.0 % [facility] Hematocrit (Bld) [Volume fraction] 23.5 % Critically low 36.0 - 48.0 % [facility] e Comment on above: RESULTS CALLED TO DR Minerva PEACE Hemoglobin (Bld) [Mass/Vol] 7.8 g/dL Low 12.0 - 16.0 g/dL [facility] IMMATURE GRANULOCYTES ABS AUTO 0.03 [facility] Immature granulocytes/100 WBC (Bld) 0.4 % 0.0 - 0.5 % [facility] Interpretation and review of laboratory results Abnormal [facility] LYMPHOCYTES ABSOLUTE AUTO 0.9 Low [facility] Lymphocytes/100 WBC (Bld) 12.6 % Low 20.5 - 60.0 % [facility] MCH (RBC) [Entitic mass] 32 pg 26.7 - 34.0 pg [facility] MCHC (RBC) [Mass/Vol] 33.2 g/dL 29.9 - 35.2 g/dL [facility] MCV (RBC) [Entitic vol] 96.3 fL 81.0 - 99.0 fL [facility] MONOCYTES ABSOLUTE AUTO 0.6 [facility] Monocytes/100 WBC (Bld) 8.6 % 1.7 - 12.0 % [facility] NEUTROPHILS ABSOLUTE AUTO 5.1 [facility] Neutrophils/100 WBC (Bld) 76.2 % High 43.0 - 75.0 % [facility] Platelet mean volume (Bld) [Entitic vol] 8.7 fL Low 9.5 - 13.[address] [facility] are TB EO # 0.1 [facility] TB PLT 260 [facility] TB RBC 2.[address] [facility] e TB WBC 6.7 [facility] Urinalysis macro (dipstick) panel (U)on 10-16-2024 Bilirubin, UA Negative Negative - 4(70) +++ mg/dL [facility] Blood, UA Negative Negative - 50 Piero/mcL [facility] Clarity, UA Clear [facility] re Color, UA Yellow [facility] e Glucose, UA Negative Negative - 1999(110) ++++ mg/dL [facility] Interpretation and review of laboratory results Normal [facility] Ketones, UA Negative Negative - 160(16) ++++ mg/dL [facility] Leukocytes, UA Negative Negative - 500+++ Sherie/mcL [facility] Nitrite, UA Negative Negative - Positive [facility] pH, UA 7 5 - 9 [facility] Protein, UA Negative Negative - 1999(20) ++++ mg/dL [facility] Spec Grav, UA 1.015 1 - 1.03 [facility] Urobilinogen, UA 0.2 0.2 - 12 mg/dL [facility] e ALL CBC WITH AUTO DIFFon Erythrocyte distribution width (RBC) [Ratio] 12.9 % 11.0 - 15.0 % [facility] Hematocrit (Bld) [Volume fraction] 27 % Low 36.0 - 48.0 % [facility] e Hemoglobin (Bld) [Mass/Vol] 9 g/dL Low 12.0 - 16.0 g/dL [facility] Interpretation and review of laboratory results Abnormal [facility] MCH (RBC) [Entitic mass] 31.9 pg 26.7 - 34.0 pg [facility] MCHC (RBC) [Mass/Vol] 33.3 g/dL 29.9 - 35.2 g/dL [facility] MCV (RBC) [Entitic vol] 95.7 fL 81.0 - 99.0 fL [facility] Platelet mean volume (Bld) [Entitic vol] 9.1 fL Low 9.5 - 13.[address] [facility] are [facility] PLT 265 [facility] Healthcar e TBH RBC 2.82 Low [facility] WBC 9.9 [facility] ALL CBC WITH AUTO DIFFon BASOPHILS ABSOLUTE AUTO 0.1 [facility] Basophils/100 WBC (Bld) 1.1 % 0.2 - 2.0 % [facility] Eosinophils/100 WBC (Bld) 1.3 % 0.9 - 7.0 % [facility] Erythrocyte distribution width (RBC) [Ratio] 12.6 % 11.0 - 15.0 % [facility] Hematocrit (Bld) [Volume fraction] 36.3 % 36.0 - 48.0 % [facility] Hemoglobin (Bld) [Mass/Vol] 12.4 g/dL 12.0 - 16.0 g/dL [facility] IMMATURE GRANULOCYTES ABS AUTO 0.01 [facility] Immature granulocytes/100 WBC (Bld) 0.2 % 0.0 - 0.5 % [facility] Interpretation and review of laboratory results Abnormal [facility] LYMPHOCYTES ABSOLUTE AUTO 1.4 [facility] Lymphocytes/100 WBC (Bld) 30.4 % 20.5 - 60.0 % [facility] MCH (RBC) [Entitic mass] 32.2 pg 26.7 - 34.[address] [facility] MCHC (RBC) [Mass/Vol] 34.2 g/dL 29.9 - 35.2 g/dL [facility] MCV (RBC) [Entitic vol] 94.3 fL 81.0 - 99.0 fL [facility] MONOCYTES ABSOLUTE AUTO 0.4 [facility] Monocytes/100 WBC (Bld) 8 % 1.7 - 12.0 % [facility] NEUTROPHILS ABSOLUTE AUTO 2.7 [facility] Neutrophils/100 WBC (Bld) 59 % 43.0 - 75.0 % [facility] Platelet mean volume (Bld) [Entitic vol] 8.8 fL Low 9.5 - 13.5 fL [facility] EO # 0.1 [facility] PLT 265 [facility] RBC 3.85 Low [facility] WBC 4.6 [facility] Pathology Request for Lab Co rpon 10-11-2024 Pathology Request for Lab Kary Normal [facility] Comment on above: Order Comment: UTERU S, CERVIX, BILATERAL FALLOPIAN TUBES Result Comment: See report. Scanned copy available in EMR. PERFORMED BY: [facility] [address] [place] [address] PATHOLOGIST SERVICES REP JOSE CARLOS HURTADO M.D. Performed By: #### P ATH TO [facility] #### [facility] [address] ALL CBC WITH AUTO DIFFon BASOPHILS ABSOLUTE AUTO 0.1 [facility] Basophils/100 WBC (Bld) 0.8 % 0.2 - 2.0 % [facility] Eosinophils/100 WBC (Bld) 0.6 % Low 0.9 - 7.0 % [facility] Erythrocyte distribution width (RBC) [Ratio] 12.5 % 11.0 - 15.0 % [facility] Hematocrit (Bld) [Volume fraction] 36.1 % 36.0 - 48.0 % [facility] Hemoglobin (Bld) [Mass/Vol] 12.1 g/dL 12.0 - 16.0 g/dL [facility] IMMATURE GRANULOCYTES ABS AUTO 0.01 [facility] Immature granulocytes/100 WBC (Bld) 0.2 % 0.0 - 0.5 % [facility] Interpretation and review of laboratory results Abnormal [facility] LYMPHOCYTES ABSOLUTE AUTO 1.5 [facility] Lymphocytes/100 WBC (Bld) 22.8 % 20.5 - 60.0 % [facility] MCH (RBC) [Entitic mass] 31.3 pg 26.7 - 34.0 pg [facility] MCHC (RBC) [Mass/Vol] 33.5 g/dL 29.9 - 35.2 g/dL [facility] MCV (RBC) [Entitic vol] 93.3 fL 81.0 - 99.0 fL [facility] MONOCYTES ABSOLUTE AUTO 0.5 [facility] Monocytes/100 WBC (Bld) 7.1 % 1.7 - 12.0 % [facility] NEUTROPHILS ABSOLUTE AUTO 4.4 [facility] Neutrophils/100 WBC (Bld) 68.5 % 43.0 - 75.0 % [facility] Platelet mean volume (Bld) [Entitic vol] 9.1 fL Low 9.5 - 13.5 fL [facility] Healthc are TBH EO # 0 [facility] PLT 249 [facility] RBC 3.87 Low [facility] WBC 6.4 [facility] XR CHEST 2Von 10-04-[address] [address] XRay Report Signed Patient: TANYA RUIZ MR#: [id number] : 1985 Acct:[id number] Age/Sex: 38 / F ADM Date: 10/04/24 Loc: [facility] Attending Dr: Marky Peace D.O. Ordering Physician: Marky Peace D.O. Date of Service: 10/04/24 Procedure(s): XR chest 2V Accession Number(s): [id number] cc: Marky Peace D.O.; Physician,Non-Staff [place] The [address] [address] Patient Name: TANYA RUIZ MRN: [facility]:[id number] date: 1985 Sex: F Assigned Patient Location: [facility] Current Patient Location: [facility] Accession/Order Number: [id number] Exam Date: 10/04/2024 13:56 Report Date: 10/04/2024 13:57 At the request of: MARKY PEACE DO Procedure: XR chest 2V Chest 2 views CLINICAL HISTORY: Preop exam COMPARISON: None FINDINGS: Heart normal size. Lungs are clear. No free air. XR/XR chest 2V IMPRESSION: NO ACUTE CARDIOPULMONARY ABNORMALITY. Impression dictated by: Paresh Salas Jr., D.O.10/04/2024 1:57 PM Dictation Location: [place] [address] Electronically authenticated by: [id number] Y Date: 10/04/2024 13:57 Dictated By: Paresh Salas M.D. Signed By: 10/04/24 1359 DD/ 1357 TD/TT: Warping Machine Operator: [facility] Radiology, Radiologist, - 10/04/[address] [place] [address] XRay Report Signed Patient: TANYA RUIZ MR#: [id number] : 1985 Acct:[id number] Age/Sex: 38 / F ADM Date: 10/04/24 Loc: [facility] Attending Dr: Marky Peace D.O. Ordering Physician: Marky Peace D.O. Date of Service: 10/04/24 Procedure(s): XR chest 2V Accession Number(s): [id number] cc: Marky Peace D.O.; Physician,Non-Staff [place] [address] Patient Name: TANYA RUIZ MRN: [id number] date: 1985 Sex: F Assigned Patient Location: [facility] Current Patient Location: [facility] Accession/Order Number: [id number] Exam Date: 10/04/2024 13:56 Report Date: 10/04/2024 13:57 At the request of: MARKY PEACE DO Procedure: XR chest 2V Chest 2 views CLINICAL HISTORY: Preop exam COMPARISON: None FINDINGS: Heart normal size. Lungs are clear. No free air. XR/XR chest 2V IMPRESSION: NO ACUTE CARDIOPULMONARY ABNORMALITY. Impression dictated by: Paresh Salas Jr., D.O.10/04/2024 1:57 PM Dictation Location: [place] [address] Electronically authenticated by: [id number] Y Date: 10/04/2024 13:57 Dictated By: Paresh Salas M.D. Signed By: 10/04/24 1359 DD/ 1357 TD/TT: Warping Machine Operator: [facility] Reviews42 Radiology Study observation (narrative) [facility] Reviews42 XR CHEST [facility]: [facility] 10-04-2024 [facility] [employer] Work Phone: CBC AND AUTO DIFFon 09-25-19 ABSOLUTE BASOPHIL 0.1 X10E9/L Normal 0.0-0.2 [facility] Comment on above: Performed By: #### C BCA, BURNT LIME DRAWER, LIVR, 3094-0 #### [facility] ([id number]) [address], [address] [place] [address] ABSOLUTE NEUTROPHIL 4.8 X10E9/L Normal 1.5-6.6 [facility] Comment on above: Performed By: #### C BCA, BURNT LIME DRAWER, LIVR, 3094-0 #### [facility] ([id number]) [address], [address] [place] [address] Basophils/100 WBC (Bld) 0.9 % Normal [facility] Comment on above: Performed By: #### C BCA, BURNT LIME DRAWER, LIVR, 3094-0 #### [facility] ([id number]) [address], [address] [place] [address] Eosinophils (Bld) [#/Vol] 0.0 10*3/uL Normal 0.0-0.4 [facility] Comment on above: Performed By: #### C BCA, BURNT LIME DRAWER, LIVR, 3094-0 #### [facility] ([id number]) [address], [address] [place] [address] Eosinophils/100 WBC (Bld) 0.5 % Normal [facility] Comment on above: Performed By: #### C BCA, BURNT LIME DRAWER, LIVR, 3094-0 #### [facility] ([id number]) [address], [address] [place] [address] Erythrocyte distribution width (RBC) [Ratio] 13.4 % Normal 11.5-15.0 [facility] Comment on above: Performed By: #### C BCA, BURNT LIME DRAWER, LIVR, 3094-0 #### [facility] ([id number]) [address], [address] [place] [address] Hematocrit (Bld) [Volume fraction] 37.4 % Normal 35-47 [facility] Comment on above: Performed By: #### C BCA, BURNT LIME DRAWER, LIVR, 3094-0 #### [facility] ([id number]) [address] [address] [place] [address] Hemoglobin (Bld) [Mass/Vol] 12.9 g/dL Normal 11.7-15.5 [facility] Comment on above: Performed By: #### C BCA, BURNT LIME DRAWER, LIVR, 3094-0 #### [facility] ([id number]) [address] [address] [place] [address] Lymphocytes (Bld) [#/Vol] 1.2 10*3/uL Normal 1.0-3.5 [facility] Comment on above: Performed By: #### C BCA, BURNT LIME DRAWER, LIVR, 3094-0 #### [facility] ([id number]) [address] [address] [place] [address] Lymphocytes/100 WBC (Bld) 18.0 % Normal [facility] Comment on above: Performed By: #### C BCA, BURNT LIME DRAWER, LIVR, 3094-0 #### [facility] ([id number]) [address] [address] [place] [address] MCH (RBC) [Entitic mass] 32.2 pg Normal 27-34 [facility] Comment on above: Performed By: #### C BCA, BURNT LIME DRAWER, LIVR, 3094-0 #### [facility] ([id number]) [address] [address] [place] [address] MCHC (RBC) [Mass/Vol] 34.6 g/dL Normal 32-36 [facility] Comment on above: Performed By: #### C BCA, BURNT LIME DRAWER, LIVR, 3094-0 #### [facility] ([id number]) [address] [address] [place] [address] MCV (RBC) [Entitic vol] 93 fL Normal 80-100 [facility] Comment on above: Performed By: #### C BCA, BURNT LIME DRAWER, LIVR, 3094-0 #### [facility] ([id number]) [address], [address] [place] [address] Monocytes (Bld) [#/Vol] 0.4 10*3/uL Normal 0-0.9 [facility] Comment on above: Performed By: #### C BCA, BURNT LIME DRAWER, LIVR, 3094-0 #### [facility] ([id number]) [address], [facility] [address] [place] [address] Monocytes/100 WBC (Bld) 6.4 % Normal [facility] Comment on above: Performed By: #### C BCA, BURNT LIME DRAWER, LIVR, 3094-0 #### [facility] ([id number]) [address], [address] [place] [address] Neutrophils/100 WBC (Bld) 74.2 % Normal [facility] Comment on above: Performed By: #### C BCA, BURNT LIME DRAWER, LIVR, 3094-0 #### [facility] ([id number]) [address], [facility] [address] [place] [address] Platelet mean volume (Bld) [Entitic vol] 6.8 fL Low 7-12 [facility] Comment on above: Performed By: #### C BCA, BURNT LIME DRAWER, LIVR, 3094-0 #### [facility] ([id number]) [address], [address] [place] [address] Platelets (Bld) [#/Vol] 260 10*3/uL Normal 150-450 [facility] Comment on above: Performed By: #### C BCA, BURNT LIME DRAWER, LIVR, 3094-0 #### [facility] ([id number]) [address], [address] [place] [address] RBC COUNT 4.01 X10E12/L Normal 3.80-5.20 [facility] Comment on above: Performed By: #### C BCA, BURNT LIME DRAWER, LIVR, 3094-0 #### [facility] ([id number]) [address], [address] [place] [address] WBC (Bld) [#/Vol] 6.4 10*3/uL Normal 4.0-11.0 [facility] Comment on above: Performed By: #### C BCA, BURNT LIME DRAWER, LIVR, 3094-0 #### [facility] ([id number]) [address], [address] [place] [address] COMPREHENSIVE METABOLIC PANE Tito 09-24-2024 Albumin [Mass/Vol] 4.2 g/dL Normal 3.2-5.3 [facility] Comment on above: Performed By: #### C BCA, BURNT LIME DRAWER, LIVR, 3094-0 #### [facility] ([id number]) [address], [address] [place] [address] ALP [Catalytic activity/Vol] 47 U/L Normal 39-130 [facility] Comment on above: Performed By: #### C BCA, BURNT LIME DRAWER, LIVR, 3094-0 #### [facility] ([id number]) [address], [address] [place] [address] ALT [Catalytic activity/Vol] 14 U/L Normal 0-31 [facility] Comment on above: Performed By: #### C BCA, BURNT LIME DRAWER, LIVR, 3094-0 #### [facility] ([id number]) [address], [address] [place] [address] Anion gap [Moles/Vol] 8 mmol/L Normal 5-15 [facility] Comment on above: Performed By: #### C BCA, BURNT LIME DRAWER, LIVR, 3094-0 #### [facility] ([id number]) [address], [address] [place] [address] AST [Catalytic activity/Vol] 18 U/L Normal 0-41 [facility] Comment on above: Performed By: #### C BCA, BURNT LIME DRAWER, LIVR, 3094-0 #### [facility] ([id number]) [address] [address] [place] [address] Bilirubin [Mass/Vol] 0.3 mg/dL Normal 0.3-1.2 [facility] Comment on above: Performed By: #### C BCA, BURNT LIME DRAWER, LIVR, 3094-0 #### [facility] ([id number]) [address] [address] [place] [address] Calcium [Mass/Vol] 8.9 mg/dL Normal 8.5-10.5 [facility] Comment on above: Performed By: #### C BCA, BURNT LIME DRAWER, LIVR, 3094-0 #### [facility] ([id number]) [address] [address] [place] [address] Chloride [Moles/Vol] 102 mmol/L Normal 98-109 [facility] Comment on above: Performed By: #### C BCA, BURNT LIME DRAWER, LIVR, 3094-0 #### [facility] ([id number]) [address] [address] [place] [address] CO2 [Moles/Vol] 23 mmol/L Normal 22-32 [facility] Comment on above: Performed By: #### C BCA, BURNT LIME DRAWER, LIVR, 3094-0 #### [facility] ([id number]) [address] [address] [place] [address] Creatinine [Mass/Vol] 0.50 mg/dL Normal 0.40-1.00 [facility] Comment on above: Result Comment: METH OD TRACEABLE TO IDMS STANDARD Performed By: #### C BCA, BURNT LIME DRAWER, LIVR, 3094-0 #### [facility] ([id number]) [address] [address] [place] [address] eGFR (CKD-EPI) NON-RACE DEPENDENT >90 Normal >59 [facility] Comment on above: Result Comment: Reported eGFR is based on the CKD-EPI 2020 equation that does not use a race coefficient. Performed By: #### C BCA, BURNT LIME DRAWER, LIVR, 3094-0 #### [facility] ([id number]) [address], [address] [place] [address] Glucose [Mass/Vol] 95 mg/dL Normal 65-99 [facility] Comment on above: Performed By: #### C BCA, BURNT LIME DRAWER, LIVR, 3094-0 #### [facility] ([id number]) [address] [address] [place] [address] Potassium [Moles/Vol] 3.7 mmol/L Normal 3.5-5.0 [facility] Comment on above: Performed By: #### C BCA, BURNT LIME DRAWER, LIVR, 3094-0 #### [facility] ([id number]) [address] [address] [place] [address] Protein [Mass/Vol] 6.5 g/dL Normal 6.0-8.0 [facility] Comment on above: Performed By: #### C BCA, BURNT LIME DRAWER, LIVR, 3094-0 #### [facility] ([id number]) [address] [address] [place] [address] Sodium [Moles/Vol] 133 mmol/L Low 134-146 [facility] Comment on above: Performed By: #### C BCA, BURNT LIME DRAWER, LIVR, 3094-0 #### [facility] ([id number]) [address] [address] [place] [address] Urea nitrogen [Mass/Vol] 11 mg/dL Normal 5-23 [facility] Comment on above: Performed By: #### C BCA, BURNT LIME DRAWER, LIVR, 3094-0 #### [facility] ([id number]) [address] [address] [place] [address] CT ABDOMEN AND PELVIS W CONT on 09-24-2024 CT ABDOMEN AND PELVIS W CONT CT ABDOMEN AND PELVIS W CONT Clinical history: Left lower quadrant abdominal pain. Groin pain. Technique: Spiral CT of the abdomen and pelvis was performed after the intravenous administration of contrast material. Sagittal and coronal reformatted imaging was performed. All CT scans at this facility use dose modulation, iterative reconstruction, and/or weight based dosing when appropriate to reduce radiation dose to as low as reasonably achievable. Comparisons: 05/14/2024. Findings: Minimal bibasilar dependent atelectasis. Previously seen nodular consolidation right lower lobe has resolved in the interim. There is no pneumoperitoneum. The liver, spleen, adrenal glands and pancreas appear unremarkable. No suspicious renal lesions. Renal collecting systems and ureters are not dilated. Abdominal aorta is not aneurysmal. No dilated bowel loops. Appendix appears normal. Abdominal aorta is not aneurysmal. No retroperitoneal nor mesenteric lymphadenopathy. Trace free fluid in the dependent portion of the pelvis is likely physiologic in a patient of this age. No acute fracture. No destructive bone lesion. IMPRESSION: 1. No acute finding in the abdomen nor pelvis. Finalized by Rudy Adkins MD on 09/24/2024 2:29 PM Normal [facility] HCG ( test) Ql (U)o n 09-24-2024 Beta HCG ( test) Ql (U) Negative Normal NEG [facility] Comment on above: Performed By: #### C BCA, BURNT LIME DRAWER, LIVR, 3094-0 #### [facility] ([id number]) [address], [address] [place] [address] LIPASEon 09-24-2024 Lipase [Catalytic activity/Vol] 26 U/L Normal 17-40 [facility] Comment on above: Performed By: #### C BCA, BURNT LIME DRAWER, LIVR, 3094-0 #### [facility] ([id number]) [address], [address] [place] [address] URN MACROSCOPIC NURon 2024 BILIRUBIN SARAH Negative Normal NEG [facility] Comment on above: Performed By: #### C BCA, BURNT LIME DRAWER, LIVR, 3094-0 #### [facility] ([id number]) [address], [address] [place] [address] BLOOD/HGB SARAH Small Abnormal NEG [facility] Comment on above: Performed By: #### C BCA, BURNT LIME DRAWER, LIVR, 3094-0 #### [facility] ([id number]) [address], [address] [place] [address] GLUCOSE SARAH Negative Normal NEG [facility] Comment on above: Performed By: #### C BCA, BURNT LIME DRAWER, LIVR, 3094-0 #### [facility] ([id number]) [address], [address] [place] [address] KETONES SARAH Negative Normal NEG [facility] Comment on above: Performed By: #### C BCA, BURNT LIME DRAWER, LIVR, 3094-0 #### [facility] ([id number]) [address], [address] [place] [address] LEUKOCYTE ESTERASE SARAH Negative Normal NEG [facility] Comment on above: Performed By: #### C BCA, BURNT LIME DRAWER, LIVR, 3094-0 #### [facility] ([id number]) [address], [address] [place] [address] NITRITE SARAH Negative Normal NEG [facility] Comment on above: Performed By: #### C BCA, BURNT LIME DRAWER, LIVR, 3094-0 #### [facility] ([id number]) [address], [address] [place] [address] PH SARAH 5.5 Normal 5.0-8.5 [facility] Comment on above: Performed By: #### C BCA, BURNT LIME DRAWER, LIVR, 3094-0 #### [facility] ([id number]) [address], [address] [place] [address] PROTEIN SARAH Negative Normal NEG [facility] Comment on above: Performed By: #### C BCA, BURNT LIME DRAWER, LIVR, 3094-0 #### [facility] ([id number]) [address], [address] [place] [address] SPECIFIC GRAVITY SARAH >=1.030 Normal 1.003-1.035 [facility] Comment on above: Performed By: #### C BCA, BURNT LIME DRAWER, LIVR, 3094-0 #### [facility] ([id number]) [address], [address] [place] [address] UROBILINOGEN SARAH 0.2 eu/dL Normal <1.1 [facility] Comment on above: Performed By: #### C BCA, BURNT LIME DRAWER, LIVR, 3094-0 #### [facility] ([id number]) [address], [address] [place] [address] CBC AND AUTO DIFFon 09-23-19 25 ABSOLUTE BASOPHIL 0.0 X10E9/L Normal 0.0-0.2 [facility] Comment on above: Performed By: #### 2 951-2, LIVR, CBCA #### [facility] ([id number]) [address], [facility] [address] [place] [address] ABSOLUTE NEUTROPHIL 2.9 X10E9/L Normal 1.5-6.6 [facility] Comment on above: Performed By: #### 2 951-2, LIVR, CBCA #### [facility] ([id number]) [address] [address] [place] [address] Basophils/100 WBC (Bld) 0.7 % Normal [facility] Comment on above: Performed By: #### 2 951-2, LIVR, CBCA #### [facility] ([id number]) [address], [facility] [address] [place] [address] Eosinophils (Bld) [#/Vol] 0.1 10*3/uL Normal 0.0-0.4 [facility] Comment on above: Performed By: #### 2 951-2, LIVR, CBCA #### [facility] ([id number]) [address], [address] [place] [address] Eosinophils/100 WBC (Bld) 1.2 % Normal [facility] Comment on above: Performed By: #### 2 951-2, LIVR, CBCA #### [facility] ([id number]) [address], [address] [place] [address] Erythrocyte distribution width (RBC) [Ratio] 13.5 % Normal 11.5-15.0 [facility] Comment on above: Performed By: #### 2 951-2, LIVR, CBCA #### [facility] ([id number]) [address], [address] [place] [address] Hematocrit (Bld) [Volume fraction] 36.5 % Normal 35-47 [facility] Comment on above: Performed By: #### 2 951-2, LIVR, CBCA #### [facility] ([id number]) [address], [address] [place] [address] Hemoglobin (Bld) [Mass/Vol] 12.6 g/dL Normal 11.7-15.5 [facility] Comment on above: Performed By: #### 2 951-2, LIVR, CBCA #### [facility] ([id number]) [address], [address] [place] [address] Lymphocytes (Bld) [#/Vol] 0.9 10*3/uL Low 1.0-3.5 [facility] Comment on above: Performed By: #### 2 951-2, LIVR, CBCA #### [facility] ([id number]) [address], [address] [place] [address] Lymphocytes/100 WBC (Bld) 21.7 % Normal [facility] Comment on above: Performed By: #### 2 951-2, LIVR, CBCA #### [facility] ([id number]) [address], [address] [place] [address] MCH (RBC) [Entitic mass] 32.3 pg Normal 27-34 [facility] Comment on above: Performed By: #### 2 951-2, LIVR, CBCA #### [facility] ([id number]) [address], [address] [place] [address] MCHC (RBC) [Mass/Vol] 34.4 g/dL Normal 32-36 [facility] Comment on above: Performed By: #### 2 951-2, LIVR, CBCA #### [facility] ([id number]) [address] [place] [address] MCV (RBC) [Entitic vol] 94 fL Normal 80-100 [facility] Comment on above: Performed By: #### 2 951-2, LIVR, CBCA #### [facility] ([id number]) [address], [address] [place] [address] Monocytes (Bld) [#/Vol] 0.3 10*3/uL Normal 0-0.9 [facility] Comment on above: Performed By: #### 2 951-2, LIVR, CBCA #### [facility] ([id number]) [address] [place] [address] Monocytes/100 WBC (Bld) 8.3 % Normal [facility] Comment on above: Performed By: #### 2 951-2, LIVR, CBCA #### [facility] ([id number]) [address], [address] [place] [address] Neutrophils/100 WBC (Bld) 68.1 % Normal [facility] Comment on above: Performed By: #### 2 951-2, LIVR, CBCA #### [facility] ([id number]) [address], [address] [place] [address] Platelet mean volume (Bld) [Entitic vol] 7.5 fL Normal 7-12 [facility] Comment on above: Performed By: #### 2 951-2, LIVR, CBCA #### [facility] ([id number]) [address], [address] [place] [address] Platelets (Bld) [#/Vol] 274 10*3/uL Normal 150-450 [facility] Comment on above: Performed By: #### 2 951-2, LIVR, CBCA #### [facility] ([id number]) [address], [address] [place] [address] RBC COUNT 3.88 X10E12/L Normal 3.80-5.20 [facility] Comment on above: Performed By: #### 2 951-2, LIVR, CBCA #### [facility] ([id number]) [address], [address] [place] [address] WBC (Bld) [#/Vol] 4.2 10*3/uL Normal 4.0-11.0 [facility] Comment on above: Performed By: #### 2 951-2, LIVR, CBCA #### [facility] ([id number]) [address], [address] [place] [address] LIVER PANELon 09-22-2024 Albumin [Mass/Vol] 4.5 g/dL Normal 3.2-5.3 [facility] Comment on above: Performed By: #### 2 951-2, LIVR, CBCA #### [facility] ([id number]) [address], [address] [place] [address] ALP [Catalytic activity/Vol] 48 U/L Normal 39-130 [facility] Comment on above: Performed By: #### 2 951-2, LIVR, CBCA #### [facility] ([id number]) [address], [address] [place] [address] ALT [Catalytic activity/Vol] 11 U/L Normal 0-31 [facility] Comment on above: Performed By: #### 2 951-2, LIVR, CBCA #### [facility] ([id number]) [address], [address] [place] [address] AST [Catalytic activity/Vol] 14 U/L Normal 0-41 [facility] Comment on above: Performed By: #### 2 951-2, LIVR, CBCA #### [facility] ([id number]) [address], [address] [place] [address] Bilirubin [Mass/Vol] 0.3 mg/dL Normal 0.3-1.2 [facility] Comment on above: Performed By: #### 2 951-2, LIVR, CBCA #### [facility] ([id number]) [address], [address] [place] [address] Bilirubin.direct [Mass/Vol] 0.0 mg/dL Normal 0.0-0.4 [facility] Comment on above: Performed By: #### 2 951-2, LIVR, CBCA #### [facility] ([id number]) [address], [address] [place] [address] Protein [Mass/Vol] 6.2 g/dL Normal 6.0-8.0 [facility] Comment on above: Performed By: #### 2 951-2, LIVR, CBCA #### [facility] ([id number]) [address], [address] [place] [address] SODIUMon 09-22-2024 Sodium [Moles/Vol] 139 mmol/L Normal 134-146 [facility] Comment on above: Performed By: #### C BCA, BURNT LIME DRAWER, LIVR, 3094-0 #### [facility] ([id number]) [address], [address] [place] [address] US PELVIC COMPLETE W/ TVon 0 08-29-2024 US PELVIC COMPLETE W/ TV EXAM: US PELVIC COMPLETE W/ TV HISTORY: Pelvic pain x 1-2 years. COMPARISON: None available. TECHNIQUE: Two-dimensional transabdominal grayscale ultrasound imaging of the pelvis was performed. Color flow Doppler imaging of the ovaries was also performed. Transvaginal was performed. FINDINGS: UTERUS 7.9 x 4.4 x 5.4 cm The uterus is anteverted in position and demonstrates a normal, homogeneous echotexture. Multiple nabothian cysts are visualized within the cervix. ENDOMETRIUM 0.3 cm The endometrium demonstrates a normal, homogeneous echotexture. There is a 0.4 cm echogenic areas visualized. RIGHT OVARY 3.7 x 2.5 x 3.2 cm The right ovary demonstrates a normal echotexture. There is normal color Doppler flow. There is a 2.1 cm dominant follicle visualized. LEFT OVARY 3.3 x 1.3 x 3.1 cm The left ovary demonstrates a normal echotexture. There is normal color Doppler flow. No fluid is present within the cul-de-sac. IMPRESSION: 1. Small echogenic area within the endometrial canal, this may represent an endometrial polyp. 2. Normal color Doppler flow within the bilateral ovaries. Electronically Signed:Electronically signed by DARLINE MARTINEZ II, MD, PHD at 30-Aug-2024 08:46:00 AM [facility] Normal Not Available Comment on above: Order Comment: US PE LVIS-TRANSVAG IF INDICATED No LMP recorded. CT ABDOMEN AND PELVIS W CONT on 05-14-2024 CT ABDOMEN AND PELVIS W CONT CT ABDOMEN AND PELVIS W CONT CLINICAL INFORMATION: Abdominal pain, acute, nonlocalized TECHNIQUE: CT ABDOMEN AND PELVIS W CONT2 CT images of the abdomen and pelvis are obtained. Ill-defined posterior right lower lobe infiltrate noted suggesting pneumonia. Liver and spleen appear unremarkable. There is no hydronephrosis or nephrolithiasis. Bowel nondistended. There is prominent colonic stool with possible rectal fecal impaction. No adnexal abnormality seen. No free pelvic fluid. Pancreas and adrenals unremarkable. Portal and mesenteric vessels appear to enhance normally to include on sagittal imaging. Osseous structures appear intact. Small bowel is nondistended. Gallbladder nondistended. IMPRESSION: Prominent colonic stool and possible rectal fecal impaction. Posterior right lower lobe pulmonary infiltrate suggesting pneumonia. All CT scans at this facility use dose modulation, iterative reconstruction, and/or weight based dosing when appropriate to reduce radiation dose to as low as reasonably achievable. Finalized by Thomas Hogan MD on 05/14/2024 11:16 PM Normal [facility] HCG ( test) Dax stephy Ql (S)on 05-14-2024 SERUM Negative Normal NEG [facility] Comment on above: Performed By: #### 8 0385-8 #### [facility] ([id number]) [address] [place] [address] URN MACROSCOPIC NURon 2023 BILIRUBIN SARAH Negative Normal NEG [facility] Comment on above: Performed By: #### N UM #### [facility] ([id number]) [address] [place] [address] BLOOD/HGB SARAH Small Abnormal NEG [facility] Comment on above: Performed By: #### N UM #### [facility] ([id number]) [address] [place] [address] [place] [address] GLUCOSE SARAH Negative Normal NEG [facility] Comment on above: Performed By: #### N UM #### [facility] ([id number]) [address] [place] [address] KETONES SARAH 40 mg/dL Abnormal NEG [facility] Comment on above: Performed By: #### N UM #### [facility] ([id number]) [address] [place] [address] LEUKOCYTE ESTERASE SARAH Negative Normal NEG [facility] Comment on above: Performed By: #### N UM #### [facility] ([id number]) [address] [place] [address] NITRITE SARAH Negative Normal NEG [facility] Comment on above: Performed By: #### N UM #### [facility] ([id number]) [address] [place] [address] PH SARAH 6.0 Normal 5.0-8.5 [facility] Comment on above: Performed By: #### N UM #### [facility] ([id number]) [address] [place] [address] PROTEIN SARAH Negative Normal NEG [facility] Comment on above: Performed By: #### N UM #### [facility] ([id number]) [address] [place] [address] SPECIFIC GRAVITY SARAH 1.010 Normal 1.003-1.035 [facility] Comment on above: Performed By: #### N UM #### [facility] ([id number]) [address] [place] [address] UROBILINOGEN SARAH 1.0 eu/dL Normal <1.1 [facility] Comment on above: Performed By: #### N UM #### [facility] ([id number]) [address] [place] [address] SODIUMon 04-12-2024 Sodium [Moles/Vol] 138 mmol/L Normal 134-146 [facility] Comment on above: Performed By: #### 2 951-2 #### [facility] ([id number]) [address] [place] [address] BLOOD UREA NITROGENon 2023 Urea nitrogen [Mass/Vol] 12 mg/dL Normal 5-23 [facility] Comment on above: Performed By: #### C BCA, BURNT LIME DRAWER, LIVR, 3094-0 #### [facility] ([id number]) [address] [place] [address] CBC AND AUTO DIFFon 03-21-20 24 ABSOLUTE BASOPHIL 0.1 X10E9/L Normal 0.0-0.2 [facility] Comment on above: Performed By: #### C BCA, BURNT LIME DRAWER, LIVR, 3094-0 #### [facility] ([id number]) [address], [address] [place] [address] ABSOLUTE NEUTROPHIL 4.7 X10E9/L Normal 1.5-6.6 [facility] Comment on above: Performed By: #### C BCA, BURNT LIME DRAWER, LIVR, 3094-0 #### [facility] ([id number]) [address] [place] [address] Basophils/100 WBC (Bld) 0.9 % Normal [facility] Comment on above: Performed By: #### C BCA, BURNT LIME DRAWER, LIVR, 3094-0 #### [facility] ([id number]) [address] [address] [place] [address] Eosinophils (Bld) [#/Vol] 0.0 10*3/uL Normal 0.0-0.4 [facility] Comment on above: Performed By: #### C BCA, BURNT LIME DRAWER, LIVR, 3094-0 #### [facility] ([id number]) [address] [place] [address] Eosinophils/100 WBC (Bld) 0.5 % Normal [facility] Comment on above: Performed By: #### C BCA, BURNT LIME DRAWER, LIVR, 3094-0 #### [facility] ([id number]) [address], [address] [place] [address] Erythrocyte distribution width (RBC) [Ratio] 13.7 % Normal 11.5-15.0 [facility] Comment on above: Performed By: #### C BCA, BURNT LIME DRAWER, LIVR, 3094-0 #### [facility] ([id number]) [address], [address] [place] [address] Hematocrit (Bld) [Volume fraction] 37.5 % Normal 35-47 [facility] Comment on above: Performed By: #### C BCA, BURNT LIME DRAWER, LIVR, 3094-0 #### [facility] ([id number]) [address], [address] [place] [address] Hemoglobin (Bld) [Mass/Vol] 13.0 g/dL Normal 11.7-15.5 [facility] Comment on above: Performed By: #### C BCA, BURNT LIME DRAWER, LIVR, 3094-0 #### [facility] ([id number]) [address] [address] [place] [place] [address] Lymphocytes (Bld) [#/Vol] 1.5 10*3/uL Normal 1.0-3.5 [facility] Comment on above: Performed By: #### C BCA, BURNT LIME DRAWER, LIVR, 3094-0 #### [facility] ([id number]) [address], [facility] [address] [place] [address] Lymphocytes/100 WBC (Bld) 22.5 % Normal [facility] Comment on above: Performed By: #### C BCA, BURNT LIME DRAWER, LIVR, 3094-0 #### [facility] ([id number]) [address], [address] [place] [address] MCH (RBC) [Entitic mass] 32.3 pg Normal 27-34 [facility] Comment on above: Performed By: #### C BCA, BURNT LIME DRAWER, LIVR, 3094-0 #### [facility] ([id number]) [address], [address] [place] [address] MCHC (RBC) [Mass/Vol] 34.5 g/dL Normal 32-36 [facility] Comment on above: Performed By: #### C BCA, BURNT LIME DRAWER, LIVR, 3094-0 #### [facility] ([id number]) [address], [address] [place] [address] MCV (RBC) [Entitic vol] 93 fL Normal 80-100 [facility] Comment on above: Performed By: #### C BCA, BURNT LIME DRAWER, LIVR, 3094-0 #### [facility] ([id number]) [address], [address] [place] [address] Monocytes (Bld) [#/Vol] 0.5 10*3/uL Normal 0-0.9 [facility] Comment on above: Performed By: #### C BCA, BURNT LIME DRAWER, LIVR, 3094-0 #### [facility] ([id number]) [address], [address] [place] [address] Monocytes/100 WBC (Bld) 6.9 % Normal [facility] Comment on above: Performed By: #### C BCA, BURNT LIME DRAWER, LIVR, 3094-0 #### [facility] ([id number]) [address], [address] [place] [address] Neutrophils/100 WBC (Bld) 69.2 % Normal [facility] Comment on above: Performed By: #### C BCA, BURNT LIME DRAWER, LIVR, 3094-0 #### [facility] ([id number]) [address], [address] [place] [address] Platelet mean volume (Bld) [Entitic vol] 7.5 fL Normal 7-12 [facility] Comment on above: Performed By: #### C BCA, BURNT LIME DRAWER, LIVR, 3094-0 #### [facility] ([id number]) [address], [address] [place] [address] Platelets (Bld) [#/Vol] 311 10*3/uL Normal 150-450 [facility] Comment on above: Performed By: #### C BCA, BURNT LIME DRAWER, LIVR, 3094-0 #### [facility] ([id number]) [address], [address] [place] [address] RBC COUNT 4.01 X10E12/L Normal 3.80-5.20 [facility] Comment on above: Performed By: #### C BCA, BURNT LIME DRAWER, LIVR, 3094-0 #### [facility] ([id number]) [address], [address] [place] [address] WBC (Bld) [#/Vol] 6.7 10*3/uL Normal 4.0-11.0 [facility] Comment on above: Performed By: #### C BCA, BURNT LIME DRAWER, LIVR, 3094-0 #### [facility] ([id number]) [address], [address] [place] [address] CREATININEon 03-21-2024 Creatinine [Mass/Vol] 0.64 mg/dL Normal 0.40-1.00 [facility] Comment on above: Result Comment: METH OD TRACEABLE TO IDMS STANDARD Performed By: #### C BCA, BURNT LIME DRAWER, LIVR, 3094-0 #### [facility] ([id number]) [address], [address] [place] [address] eGFR (CKD-EPI) NON-RACE DEPENDENT >90 Normal >59 [facility] Comment on above: Result Comment: Reported eGFR is based on the CKD-EPI 2020 equation that does not use a race coefficient. Performed By: #### C BCA, BURNT LIME DRAWER, LIVR, 3094-0 #### [facility] ([id number]) [address], [address] [place] [address] LIVER PANELon 03-21-2024 Albumin [Mass/Vol] 4.7 g/dL Normal 3.2-5.3 [facility] Comment on above: Performed By: #### C BCA, BURNT LIME DRAWER, LIVR, 3094-0 #### [facility] ([id number]) [address], [address] [place] [address] ALP [Catalytic activity/Vol] 53 U/L Normal 39-130 [facility] Comment on above: Performed By: #### C BCA, BURNT LIME DRAWER, LIVR, 3094-0 #### [facility] ([id number]) [address], [address] [place] [address] ALT [Catalytic activity/Vol] 8 U/L Normal 0-31 [facility] Comment on above: Performed By: #### C BCA, BURNT LIME DRAWER, LIVR, 3094-0 #### [facility] ([id number]) [address], [address] [place] [address] AST [Catalytic activity/Vol] 14 U/L Normal 0-41 [facility] Comment on above: Performed By: #### C BCA, BURNT LIME DRAWER, LIVR, 3094-0 #### [facility] ([id number]) [address], [address] [place] [address] Bilirubin [Mass/Vol] 0.2 mg/dL Low 0.3-1.2 [facility] Comment on above: Performed By: #### C BCA, BURNT LIME DRAWER, LIVR, 3094-0 #### [facility] ([id number]) [address], [address] [place] [address] Bilirubin.direct [Mass/Vol] 0.0 mg/dL Normal 0.0-0.4 [facility] Comment on above: Performed By: #### C BCA, BURNT LIME DRAWER, LIVR, 3094-0 #### [facility] ([id number]) [address], [address] [place] [address] Protein [Mass/Vol] 6.6 g/dL Normal 6.0-8.0 [facility] Comment on above: Performed By: #### C BCA, BURNT LIME DRAWER, LIVR, 3094-0 #### [facility] ([id number]) [address], [facility] [address] [place] [address] XR TIBIA FIBULA LEFT (2 VIEW S)on [...] Raymond Farley DO 01/13/23 Final result Normal [facility] Q - TISSUE 2 SPECon 07-07-19 22 A DIAGNOSIS 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 Normal [facility] Specialist Comment on above: Order Comment: [facility] Testing performed at: [facility], [facility], [address], [address], [place], [place], [address] [place] [address], Machine Hoop Maker: Alia Baltazar [facility] Collection Date/Time: [facility] Results Received Date/Time: [facility] Reported Date/Time: FASTING: UNKNOWN Performed By: #### 1 0800, 125F #### [facility] [address] [place] [address] A GROSS DESCRIPTION SEE NOTE Normal [facility] Specialist Comment on above: Order Comment: [facility] performed at: [facility], [facility], [address] [facility], [address], [place], [place], [address] [place] [address], Machine Hoop Maker: Alia Baltazar [facility] Collection Date/Time: [facility] Results [...] 0800, 125F #### [facility] [address] [place] [id number] A SOURCE Cervix at 3, 6, and 12 o'clock, biopsy: Normal [facility] Comment on above: Order Comment: [facility] performed at: [facility], [facility], [address], [address], [place], [place], [address] [place] [address], Machine Hoop Maker: Alia Baltazar [facility] Collection Date/Time: [facility] Results Received Date/Time: [facility] Reported Date/Time: FASTING: UNKNOWN Performed By: #### 1 0800, 125F #### [facility] [address] [place] [address] B DIAGNOSIS SEE NOTE Normal [facility] Specialist Comment on above: Order Comment: [facility] performed at: [facility], [address] [facility], [address], [place], [place], [address] [place] [address], Machine Hoop Maker: Alia Baltazar [facility] Collection Date/Time: [facility] Results Received Date/Time: [facility] Reported Date/Time: FASTING: UNKNOWN Result Comment: Enma te fragments of unremarkable endocervical epithelium and squamous epithelium. Performed By: #### 1 0800, 125F #### [facility] [address] [place] [address] B GROSS DESCRIPTION SEE NOTE Normal [facility] Comment on above: Order Comment: [facility] performed at: [facility], [address] [place] [address], [address], [place], [place], [address] [place] [address], Machine Hoop Maker: Alia Baltazar [facility] Collection Date/Time: [facility] Results Received Date/Time: [facility] Reported Date/Time: FASTING: UNKNOWN Result Comment: Rece ived in formalin is a specimen labeled endocervix that consists of pale sloan mucoid material on a wire brush tip measuring in aggregate 2.5 x 0.2 x 0.1 cm. Submitted entirely in one cassette(s). SW Performed By: #### 1 0800, 125F #### [facility] [address] [place] [address] B SOURCE Endocervix, curettings: Normal [facility]ist Comment on above: Order Comment: [facility] performed at: [facility], [address] [facility], [address], [place], [place], [address] [place] [address], Machine Hoop Maker: Alia Baltazar [facility] Collection Date/Time: [facility] Results Received Date/Time: [facility] Reported Date/Time: [id number] FASTING: UNKNOWN Performed By: #### 1 0800, 125F #### [facility] [address] [place] [address] Q - TISSUE PATHOLOGYon 07-07 CLINICAL INFORMATION R87.619 Normal [facility] Comment on above: Order Comment: [facility] performed at: [facility], [facility], [address], [place], [address] [place] [address], Machine Hoop Maker: Alia Baltazar [facility] Collection Date/Time: [facility] Results Received Date/Time: [facility] Reported Date/Time: FASTING: UNKNOWN Performed By: #### 1 0800, 125F #### [facility] [address] [place] [address] Pathologist Cyto stain Nom (Cvx/Vag) [ID] SEE NOTE Normal [facility] Comment on above: Order Comment: [facility] performed at: [facility], [facility], [address], [address], [place], [place], [address] [place] [address], Machine Hoop Maker: Alia Baltazar [facility] Collection Date/Time: [facility] Results Received Date/Time: [facility] Reported Date/Time: FASTING: UNKNOWN Result Comment: Stephanie Juárez M.D. Board certified in Anatomic Pathology and Clinical Pathology (electronic signature) [phone] Performed By: #### 1 0800, 125F #### [facility] [address] [place] [address] PROGRESSon 04-07-2019 PROGRESS HNO ID: [id number] Author: Nba Smith Service: Neurology Adult Epilepsy Author Type: Physician Type: Progress Notes Filed: 04/07/2019 1:13 PM Note Text: SERVICE DATE: 04/07/2019 SERVICE TIME: 9:43 AM NEUROLOGY EPILEPSY MONITORING UNIT ([facility]) PROGRESS NOTE NIGHT AND WEEKEND COVERAGE: After 5 pm and over the weekends, please page [phone] to contact the epilepsy resident/fellow/provi bisi carbon electrodes supervisor Subjective No seizures overnight. HOME ANTI EPILEPTIC DRUGS: Aptiom 200mg tid ANTI EPILEPTIC DRUGS HERE: Aptiom 200mg tid Objective 04/06/19193904/06/19 2323 04/07/19 0344 04/07/19 0742 BP: 123/76 105/61 94/57 110/63 [...] standing. SEIZURE DETECTION SOFTWARE ON: Yes ? software technician has been notified: Yes ? tank refinisher has been notified: Yes EXAM: Mental Status: Alert and awake. Responds to questions appropriately unix administrator: face symmetric Motor: Moves all extremities equally. Exam otherwise unchanged. DATA: Diagnostic tests reviewed for today's visit: No new labs QUALITY CHECKLIST: Lines, Drains, and Airways Line Peripheral 04/05/19 2000 Left Forearm 22 Gauge 1 day Reviewed [...] lobe (T4 mostly) with a few with vbnru-ysm-prcy morphology. None of her typical events were [...] - Present Current Assessment AND Plan Assessment: 2 to 1 ppd PLAN: -Nicotine 14 patch daily Mild protein-calorie malnutrition (HCC) 04/06/2019 - Present Medication and Non-Pharmacologic VTE Prophylaxis/Anticoagu lants 04/05/19 0945 pneumatic compression stockings ([place], [place]) 04/05/19 0945 activity - mobilize patient ([place]) VTE Prophylaxis: VTE prophylaxis appropriate Plan of care discussed with: Provider, RN, Patient SIGNATURE: Cinthia Mitchell MD PATIENT NAME: Tanya Ruiz DATE: April 07, 2019 TIME: 9:43 AM PAGER/CONTACT #: [phone] EPILEPSY CENTER STAFF NOTE ? [facility] STAFF PHYSICIAN NOTE OF PERSONAL INVOLVEMENT IN [...] ; [facility] Continue other medical care - Ativan for prolonged or clusters of seizures, and seizure precaution. ? If patient is having seizures or seizure like episodes, it needs to confirm any ictal EEG changes before administer Ativan: call [facility] ([phone] or EEG fellow oncall (pager [phone]) ? ? Epilepsy Photograph Retoucher Pager [phone]. EEG reading-fellow carbon electrodes supervisor pager [phone]. ? ? Nba Smith MD, PHD Beeper Number: [id number] Date of Service: April 07, 2019 [facility] NURSING PROGon 04-06-2019 NURSING PROG HNO ID: [id number] Author: Darwin Turcios) LOR Das Service: ? Author Type: Registered Nurse Type: Nursing Progress Note Filed: 04/06/2019 5:31 AM Note Text: Seizure Note Patient Name: Tanya Ruiz Patient Location: [facility] [place] 002/60-02 Time seizure started: 0410 Length of seizure: 1 min 11 sec [...] note was completed by: Darwin Das RN [facility] NUTRITIONon 04-06-2019 NUTRITION HNO ID: [id number] Author: Sarah Stephen Service: Nutrition Therapy Author [...] Resting Metabolic Rate: 1279 Estimated kilocalorie needs: 6536-5928 kilocalories determined by 25-30 kcal/kg Estimated protein needs: 72-87 grams determined by 20% of estimated energy needs Estimated fluid needs: 3833-4872 milliliters based on 1 mL per kcal [...] April 06, 2019 TIME: 1:40 PM PAGER: [phone] Normal [facility] PROGRESSon 04-06-2019 PROGRESS HNO ID: [id number] Author: Nba Smith Service: Neurology Adult Epilepsy Author Type: Physician Type: Progress Notes Filed: 04/06/2019 1:54 PM Note Text: SERVICE DATE: 04/06/2019 SERVICE TIME: 9:34 AM NEUROLOGY EPILEPSY MONITORING UNIT ([facility]) PROGRESS NOTE NIGHT AND WEEKEND COVERAGE: After 5 pm and over the weekends, please page [phone] to contact the epilepsy resident/fellow/terrie mathews carbon electrodes supervisor Subjective Patient states she felt like crap [...] TID ANTI EPILEPTIC DRUGS HERE: none Objective 04/05/19 2320 04/06/19 0335 04/06/19 0336 04/06/19 0802 BP: 100/55 83/50 101/55 103/60 Pulse: 66 66 70 78 Resp: 18 18 16 Temp: 37 ?C (98.6 ?F) 36.7 ?C (98.1 ?F) 37.1 ?C (98.8 ?F) TempSrc: Oral Oral Oral SpO2: 100% 99% 98% Weight: Height: EKG, TELEMETRY, EEG, MONITORS AND ALARMS ARE ON: Yes ? Written order: Remains standing. SEIZURE DETECTION SOFTWARE ON: Yes ? software technician has been notified: Yes ? tank refinisher has been notified: Yes EXAM: Mental Status: Alert and oriented to person, place and time. Able to follow 1 and 2 step commands. Speaking somewhat slowly. unix administrator: Pupils equal and reactive to light, extraocular muscles intact. No nystagmus, face symmetric. Motor: Moves all extremities equally. Sens: Intact to light touch. Exam otherwise unchanged. DATA: Diagnostic tests reviewed for today's visit: Most recent labs and imaging results. QUALITY CHECKLIST: Lines, Drains, and Airways Line Peripheral 04/05/19 2000 Left Forearm 22 Gauge less than 1 [...] lobe (T4 mostly) with a few with qekef-sdi-xqro morphology. None of her typical events were [...] VTE Prophylaxis/Anticoagu lants 04/05/19944 pneumatic compression stockings ([place]) 04/05/19944 activity - mobilize patient ([place]) VTE Prophylaxis: VTE prophylaxis appropriate Plan of care discussed with: Provider, RN, Patient SIGNATURE: Stefani Cid PA-C PATIENT NAME: Tanya Ruiz DATE: April 06, 2019 TIME: 9:34 AM PAGER/CONTACT #: [phone] EPILEPSY CENTER STAFF NOTE [facility] STAFF PHYSICIAN NOTE OF PERSONAL INVOLVEMENT IN [...] ictal EEG changes before administer Ativan: call [facility] ([phone] or EEG fellow martin (pager [phone]) Epilepsy Photograph Retoucher Pager [phone]. EEG reading-fellow carbon electrodes supervisor pager [phone]. Nba Smith MD, PHD Beeper Number: [id number] Date of Service: April 06, 2019 [facility] SOCIAL WORKon 04-06-2019 SOCIAL WORK HNO ID: [id number] Author: Katheryn Rodriguez ([place]) Service: Social Work Author Type: Biomaterials Engineer Type: Social Work Filed: 04/06/2019 4:13 PM Note Text: EMU SOCIAL WORK ASSESSMENT SERVICE DATE: 04/06/2019 REASON FOR CONSULT: Assessment secondary to EMU admission HPI: Tanya Ruiz is a 33 year old female who past medical history of anxiety and new onset seizures in December 2018, referred by Dr. Sonam Menjivar here for diagnosis and treatment options. SAMIRA spoke with patient regarding goal of admission. [...] boards. 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 She appears somewhat restless during conversation, [...] 06, 2019 TIME: 2:49 PM PAGER/CONTACT #: [phone] Normal [facility] APTTon 04-05-2019 aPTT Coag (Bld) [Time] 27.0 s Normal 23.0-32.4 [facility] Comment on above: Result Comment: Unfr [...] laboratory APTT reagent in use throughout the [facility]. Performed By: #### C BCDIF, PT, PTT, CMP, MG1, PHOS, TSH #### [facility] [address] [place], [place] [id number] CBC and Differentialon 04-05 Abs Baso 0.09 k/uL Normal <0.11 [facility] Comment on above: Performed By: #### C BCDIF, PT, PTT, CMP, MG1, PHOS, TSH #### [facility] [address] [place], [place] [id number] Abs [place] 0.41 k/uL Normal <0.87 [facility] Comment on above: Performed By: #### C BCDIF, PT, PTT, CMP, MG1, PHOS, TSH #### [facility] [address] [place], [place] [address] Abs Neut 4.40 k/uL Normal 1.45-7.50 [facility] Comment on above: Performed By: #### C BCDIF, PT, PTT, CMP, MG1, PHOS, TSH #### [place] [address] [place] [address] Absolute nRBC <0.01 Normal <0.01 [facility] Comment on above: Performed By: #### C BCDIF, PT, PTT, CMP, MG1, PHOS, TSH #### [place] [phone] Basophils/100 WBC (Bld) 1.3 % Normal [facility] Comment on above: Performed By: #### C BCDIF, PT, PTT, CMP, MG1, PHOS, TSH #### [place] [phone] DTYPE Auto Diff Normal [facility] Comment on above: Performed By: #### C BCDIF, PT, PTT, CMP, MG1, PHOS, TSH #### [place] [phone] Eosinophils (Bld) [#/Vol] 0.13 10*3/uL Normal <0.46 [facility] Comment on above: Performed By: #### C BCDIF, PT, PTT, CMP, MG1, PHOS, TSH #### [place] [phone] Eosinophils/100 WBC (Bld) 1.9 % Normal [facility] Comment on above: Performed By: #### C BCDIF, PT, PTT, CMP, MG1, PHOS, TSH #### [place] [phone] Erythrocyte distribution width (RBC) [Ratio] 12.9 % Normal 11.5-15.0 [facility] Comment on above: Performed By: #### C BCDIF, PT, PTT, CMP, MG1, PHOS, TSH #### [place] [phone] Hematocrit (Bld) [Volume fraction] 38.1 % Normal 36.0-46.0 [facility] Comment on above: Performed By: #### C BCDIF, PT, PTT, CMP, MG1, PHOS, TSH #### [place] [address] [place] [address] Hemoglobin (Bld) [Mass/Vol] 12.9 g/dL Normal 11.5-15.5 [facility] Comment on above: Performed By: #### C BCDIF, PT, PTT, CMP, MG1, PHOS, TSH #### [place] [address] Lymphocytes (Bld) [#/Vol] 1.83 10*3/uL Normal 1.00-4.00 [facility] Comment on above: Performed By: #### C BCDIF, PT, PTT, CMP, MG1, PHOS, TSH #### [place] [address] Lymphocytes/100 WBC (Bld) 26.7 % Normal [facility] Comment on above: Performed By: #### C BCDIF, PT, PTT, CMP, MG1, PHOS, TSH #### [place] [address] MCH (RBC) [Entitic mass] 30.4 pG Normal 26.0-34.0 [facility] Comment on above: Performed By: #### C BCDIF, PT, PTT, CMP, MG1, PHOS, TSH #### [place] [address] [place] [address] MCHC (RBC) [Mass/Vol] 33.9 g/dL Normal 30.5-36.0 [facility] Comment on above: Performed By: #### C BCDIF, PT, PTT, CMP, MG1, PHOS, TSH #### [facility] [address] [place], [place] [address] MCV (RBC) [Entitic vol] 89.6 fL Normal 80.0-100.0 [facility] Comment on above: Performed By: #### C BCDIF, PT, PTT, CMP, MG1, PHOS, TSH #### [place] [address] [place], [place] [address] Monocytes/100 WBC (Bld) 6.0 % Normal [facility] Comment on above: Performed By: #### C BCDIF, PT, PTT, CMP, MG1, PHOS, TSH #### [place] [address] [place], [place] [address] Neutrophils/100 WBC (Bld) 64.1 % Normal [facility] Comment on above: Performed By: #### C BCDIF, PT, PTT, CMP, MG1, PHOS, TSH #### [address] [address] NRBCs 0.0 /100 WBC Normal 0 [facility] Comment on above: Performed By: #### C BCDIF, PT, PTT, CMP, MG1, PHOS, TSH #### [place] [address] [place], [place] [address] Platelet mean volume (Bld) [Entitic vol] 9.1 fL Normal 9.0-12.7 [facility] Comment on above: Performed By: #### C BCDIF, PT, PTT, CMP, MG1, PHOS, TSH #### [place] [address] [place], [place] [address] Platelets (Bld) [#/Vol] 296 10*3/uL Normal 150-400 [facility] Comment on above: Performed By: #### C BCDIF, PT, PTT, CMP, MG1, PHOS, TSH #### [place] [address] [place], [place] [address] RBC (Bld) [#/Vol] 4.25 10*6/uL Normal 3.90-5.20 [facility] Comment on above: Performed By: #### C BCDIF, PT, PTT, CMP, MG1, PHOS, TSH #### [address] [address] WBC (Bld) [#/Vol] 6.86 10*3/uL Normal 3.70-11.00 [facility] Comment on above: Performed By: #### C BCDIF, PT, PTT, CMP, MG1, PHOS, TSH #### [address] [address] Comp Metabolic Panelon 04-05 Albumin [Mass/Vol] 4.7 g/dL Normal 3.9-4.9 [facility] Comment on above: Performed By: #### C BCDIF, PT, PTT, CMP, MG1, PHOS, TSH #### [address] [address] ALP [Catalytic activity/Vol] 51 U/L Normal 34-123 [facility] Comment on above: Performed By: #### C BCDIF, PT, PTT, CMP, MG1, PHOS, TSH #### [address] [address] ALT [Catalytic activity/Vol] 11 U/L Normal 7-38 [facility] Comment on above: Performed By: #### C BCDIF, PT, PTT, CMP, MG1, PHOS, TSH #### [place] [address] [place], [place] [address] Anion gap [Moles/Vol] 13 mmol/L Normal 9-18 [facility] Comment on above: Performed By: #### C BCDIF, PT, PTT, CMP, MG1, PHOS, TSH #### [place] [address] [place], [place] [address] AST [Catalytic activity/Vol] 11 U/L Low 13-35 [facility] Comment on above: Performed By: #### C BCDIF, PT, PTT, CMP, MG1, PHOS, TSH #### [place] [address] Bilirubin [Mass/Vol] 0.3 mg/dL Normal 0.2-1.3 [facility] Comment on above: Performed By: #### C BCDIF, PT, PTT, CMP, MG1, PHOS, TSH #### [place] [address] Calcium [Mass/Vol] 9.5 mg/dL Normal 8.5-10.2 [facility] Comment on above: Performed By: #### C BCDIF, PT, PTT, CMP, MG1, PHOS, TSH #### [place] [phone] Chloride [Moles/Vol] 106 mmol/L High 97-105 [facility] Comment on above: Performed By: #### C BCDIF, PT, PTT, CMP, MG1, PHOS, TSH #### [place] [phone] CO2 [Moles/Vol] 20 mmol/L Low 22-30 [facility] Comment on above: Performed By: #### C BCDIF, PT, PTT, CMP, MG1, PHOS, TSH #### [place] [phone] Creatinine [Mass/Vol] 0.71 mg/dL Normal 0.58-0.96 [facility] Comment on above: Performed By: #### C BCDIF, PT, PTT, CMP, MG1, PHOS, TSH #### [place] [address] eGFR- Amer. >60 Normal [facility] Comment on above: Performed By: #### C BCDIF, PT, PTT, CMP, MG1, PHOS, TSH #### [facility] [employer] [address] [place], [place] [address] GFR/1.73 sq M predicted among non-blacks MDRD (S/P/Bld) [Vol rate/Area] mL/min/{1.73_m2} Normal [facility] Comment on above: Result Comment: eGFR (Estimated GFR) Units of measure: mL/min/1.73 meters squared eGFR is derived from the reexpressed MDRD Study equation using the following parameters: serum creatinine, age, gender and race. The creatinine assay has been calibrated to be traceable to IDMS. An eGFR <60 mL/min/1.73m2 for >3 months is consistent with chronic kidney disease. Refer to KDOQI guidelines for clinical interpretation. In patients with unstable renal function, e.g. those with acute kidney injury, the eGFR may not accurately reflect actual GFR. Performed By: #### C BCDIF, PT, PTT, CMP, MG1, PHOS, TSH #### [facility] [employer] [address] [place], [place] [address] Glucose [Mass/Vol] 81 mg/dL Normal 74-99 [facility] Comment on above: Result Comment: The Chinese Diabetes Association (ADA) provides guidance for cutoff [...] Standards of Medical Care in Diabetes 2016, Chinese Diabetes Association. Diabetes Care. 2016.39(Suppl 1). Performed By: #### C BCDIF, PT, PTT, CMP, MG1, PHOS, TSH #### [facility] [employer] [address] [place], [place] [address] Potassium [Moles/Vol] 3.8 mmol/L Normal 3.7-5.1 [facility] Comment on above: Performed By: #### C BCDIF, PT, PTT, CMP, MG1, PHOS, TSH #### [place] [address] Protein [Mass/Vol] 6.7 g/dL Normal 6.3-8.0 [facility] Comment on above: Performed By: #### C BCDIF, PT, PTT, CMP, MG1, PHOS, TSH #### [place] [id number] [place] [address] Sodium [Moles/Vol] 139 mmol/L Normal 136-144 [facility] Comment on above: Performed By: #### C BCDIF, PT, PTT, CMP, MG1, PHOS, TSH #### [place] [address] Urea nitrogen [Mass/Vol] 7 mg/dL Normal 7-21 [facility] Comment on above: Performed By: #### C BCDIF, PT, PTT, CMP, MG1, PHOS, TSH #### [place] [address] HCG Qual, Urineon 04-05-2019 Beta HCG ( test) Ql (U) Negative Normal Negative [facility] Comment on above: Result Comment: This test is intended to aid in the early detection of . Very dilute urine samples, as indicated by a low specific gravity, may not contain career representative levels of hCG. This test detects [...] . Performed By: #### U HCG, UTOX2 ####[facility] [place], [place] [phone] HISTORY PHYSICALon 9 HISTORY PHYSICAL HNO ID: [id number] Author: Nba Smith Service: Neurology Adult Epilepsy Author Type: Physician Type: HANDP Filed: 04/06/2019 1:47 PM Note Text: SERVICE DATE: 04/05/2019 SERVICE TIME: 2:45 PM NEURO EPILEPSY ADMIT NOTE NIGHT AND WEEKEND COVERAGE: After 5 pm and over the weekends, please page [phone] to contact the epilepsy resident/fellow/terriei bisi carbon electrodes supervisor ATTENDING PHYSICIAN: Dr. Smith [facility] UNIT: M60 - Adult Epilepsy Monitoring Unit (EMU) SERVICE: Adult Epilepsy Subjective CHIEF COMPLAINT: Daily events PRESENT ILLNESS: Tanya uRiz is a 33 year old right handed [...] the first seizure she was at a [employer] with her mom and daughter. They were [...] a few seconds. She came back to shaky. She knew something had happened but took [...] later after she returned home. Her friend picker packer her up, and while a passenger in the car she zoned out. While she was zoned out she told her friend she wanted to go home, but did not remember that. She went to her friends house for 1 hour. She felt off, did not feel good, did not feel like herself. Her friend and [facility] her home. [...] abnormal discharges, and recommend she come to [facility] for monitoring. She notes she was not [...] lobe (T4 mostly) with a few with jtcmy-irh-mvbu morphology. None of her typical events were captured. Concerning for underlying structural issue or temporal lobe epilepsy. ? ? MRI Brain W/WO contrast (02/23/19, [facility]): per report IMPRESSION: 1. Chiari I malformation. 2. Otherwise unremarkable exam. ? ? CT brain WO contrast (08/24/16, [facility]): per report IMPRESSION: Normal CT head ? ? CT [facility] per report IMPRESSION: NORMAL UNENHANCED CT SCAN OF THE BRAIN. NO EVIDENCE OF AN INTRACRANIAL HEMORRHAGE OR HEMATOMA. ? RISK FACTORS FOR SEIZURES: No - Significant head trauma No - PHONE TECHNICIAN Infection No - Other pre-existing PHONE TECHNICIAN disease (example - tumor, vascular disease) No [...] file Gets together: Not on file Attends taoism service: Not on file Active member of [...] when she feels like that Lives in [place], [place]. REVIEW OF SYSTEMS: GENERAL: some weight [...] tremor. There was no dysmetria seen on yhanln-xptr-gylalg testing. Rapid alternating movements were normal bilaterally. [...] lobe (T4 mostly) with a few with wlmfl-uwo-ckvd morphology. None of her typical events were [...] Medication and Non-Pharmacologic VTE Prophylaxis/Anticoagu lants 04/05/19 09 pneumatic compression stockings ([place], [place]) 04/05/19944 activity - mobilize patient ([place]) VTE Prophylaxis: VTE prophylaxis appropriate SIGNATURE: Austen Howard PA-C PATIENT NAME: Tanya Ruiz DATE: April 05, 2019 TIME: 2:45 PM PAGER/CONTACT #: [phone], [phone] Nba Smith MD PhD Staff, Epilepsy Center [facility] [place], [place] See progress note dated 04/06/2019 Normal [facility] Magnesiumon 04-05-2019 Magnesium [Mass/Vol] 2.5 mg/dL High 1.7-2.3 [facility] Comment on above: Performed By: #### C BCDIF, PT, PTT, CMP, MG1, PHOS, TSH #### [facility] [address] [place], [place] [address] Phosphoruson 04-05-2019 Phosphate [Mass/Vol] 3.2 mg/dL Normal 2.7-4.8 [facility] Comment on above: Performed By: #### C BCDIF, PT, PTT, CMP, MG1, PHOS, TSH ####[facility] [address] [place], [place] [phone] Protimeon 04-05-2019 PT Coag (PPP) [Time] 1.0 s Normal 0.9-1.3 [facility] Comment on above: Result Comment: Ethel min K Antagonist (VKA) Therapeutic Range: INR 2 to 3 (Target INR of 2.5) Note: For patients treated with VKA drugs, such as warfarin, the [employer] College of Chest Physicians 2012 Guideline recommends [...] to 3.5 (target INR of 3). Vasiliy PAYNE, et al. Chest 2012, 141:7S-47S Sriram RA, et al. JAC 2017, 70: 252-289 Performed By: #### C BCDIF, PT, PTT, CMP, MG1, PHOS, TSH #### [facility] [address] [place], [place] [address] PT Coag (PPP) [Time] 10.9 s Normal 9.7-13.0 [facility] Comment on above: Performed By: #### C BCDIF, PT, PTT, CMP, MG1, PHOS, TSH #### [facility] [address], [place] [address] TSHon 04-05-2019 TSH Qn 0.727 uU/mL Normal 0.400-5.500 [facility] Comment on above: Result Comment: If t he patient is , TSH reference range varies by gestational period: First Trimester 0.100-2.500 uU/mL Second Trimester 0.200-3.000 uU/mL Third Trimester 0.300-3.000 uU/mL References: 1. Monk L, Tali M, Duke EK, et al. Management of Thyroid Dysfunction during and : An Endocrine Society Clinical Practice Guideline. J Clin Endocrinol Metab, 2012:97:8086-1216. 2. Cristian FOSTER. Overview of thyroid disease in . UpToDate. 2016. Accessed on November 28, 2015. Performed By: #### C BCDIF, PT, PTT, CMP, MG1, PHOS, TSH ####[address] [phone] Toxicology Screen,Uron 04-05 Amphetamines, Urine Negative Normal Negative [facility] Comment on above: Result Comment: Cuto ff threshold at 1000 ng/mL. Performed By: #### U HCG, UTOX2 ####[address] [phone] Barbiturates, Urine Negative Normal Negative [facility] Comment on above: Result Comment: Cuto ff threshold at 200 ng/mL. Performed By: #### U HCG, UTOX2 ####[address] [phone] Benzodiazepines, Ur Negative Normal Negative [facility] Comment on above: Result Comment: Cuto ff threshold at 200 ng/mL. Performed By: #### U HCG, UTOX2 ####[facility] [place] [phone] Cannabinoids, Urine Negative Normal Negative [facility] Comment on above: Result Comment: Cuto ff threshold at 50 ng/mL. Performed By: #### U HCG, UTOX2 ####[place] [address] [place] [phone] Cocaine, Urine Negative Normal Negative [facility] Comment on above: Result Comment: Cuto ff threshold at 300 ng/mL. Performed By: #### U HCG, UTOX2 ####[place] [address] [place] [phone] Ethanol, Urine <11 Normal <11 [facility] Comment on above: Performed By: #### U HCG, UTOX2 ####[place] [address] [place] [phone] Opiates, Urine Negative Normal Negative [facility] Comment on above: Result Comment: Cuto ff threshold at 300 ng/mL. Performed By: #### U HCG, UTOX2 ####[place] [address] [place] [phone] Oxycodone, Urine Negative Normal Negative [facility] Comment on above: Result Comment: Cuto ff [...] on the same specimen through Client Services ([phone]) if contacted within 48 hours of initial testing. [1]Substance Abuse and Mental Health Services Administration (2012). Clinical Drug Testing in Primary Care Technical Assistance Publication Series 32. Department of Health and Human Services, [place], p.10. Performed By: #### U HCG, UTOX2 ####[facility] [address] [place], [place] [phone] Phencyclidine, Urine Negative Normal Negative [facility] Comment on above: Result Comment: Cuto ff threshold at 25 ng/mL. Performed By: #### U HCG, UTOX2 ####[facility] [place], [place] [phone] PROGRESSon 03-19-2019 PROGRESS HNO ID: [id number] Author: Austen Howard Service: ? Author Type: Physician Network Management Specialist Type: Progress Notes Filed: 03/19/2019 8:58 AM Note Text: === Please route this encounter to the EMU Scheduling Pool ( P EMU ) or PMU Scheduling Pool ( P PMU ) through LOS AND Follow up === PHASE 1.0 AND 1.5 ORDER SYNOPSIS Patient: Tanya Ruiz ([id number]) (home) [phone] (cell) Insurance: Payor: ROMEO / Plan: ROMEO HALLP / Product Type: PPO / ----- Target Date: marleny Number of days requested: 4-5 days Admission Type: Regular Admission Location: Main [place] Purpose: Diagnosis and treatment options (potentially presurgical [...] ( P Neur Ep Keto ) via [employer] staff message) === Please route this encounter to the EMU Scheduling pool ( P EMU ) or PMU Scheduling pool ( P PMU ) through LOS AND Follow up === Scheduling coordinators: For all VNS patients being scheduled for REGINA, please schedule VNS off/on office visits. Normal [facility] CNCONon 03-16-2019 CNCON Consults (NIQ) TANYA RUIZ ([id number]) 1985 F Date Time Provider Department 03/16/19 RUTHY MOORE During your visit today, we recorded the following information about you: Steve Rubin APRN.SCOTT 03/16/2019 1:46 PM Signed [facility] Review of Records Patient: Tanya Ruiz Address: [address] [place] [address] Impression: Review of records for Tanya Ruiz, a 33 year old female, being referred by Dr. 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 EEG report (02/2019) noted Multiple sharp waves localizing to right temporal lobe (T4 mostly) with a few with rxhvj-wfn-zvzz morphology. None of her typical events were [...] 12/30/18), Anxiety PRIOR EVALUATIONS: ? EEG (02/13/19, [facility]): per report IMPRESSION: Abnormal EEG. Multiple sharp waves localizing to right temporal lobe (T4 mostly) with a few with fgdgs-nso-blny morphology. None of her typical events were captured. Concerning for underlying structural issue or temporal lobe epilepsy. ? MRI Brain W/WO contrast (02/23/19, [facility]): per report IMPRESSION: 1. Chiari I malformation. 2. Otherwise unremarkable exam. ? CT brain WO contrast (08/24/16, [facility]): per report IMPRESSION: Normal CT head ? CT brain WO contrast (12/19/15, [facility]): per report IMPRESSION: NORMAL UNENHANCED CT SCAN OF THE BRAIN. NO EVIDENCE OF AN INTRACRANIAL HEMORRHAGE OR HEMATOMA. Referring MD: Dr. Sonam Menjivar STEWARD/STEWARDESS THIRD CLASS Recommendations: - Intake to request [facility] MRI brain on CD (02/23/19, [facility]) - 3T MRI brain, epilepsy protocol - Visit with any epileptologist - Same day diagnostic EMU admission (potentially presurgical eval, if indicated by AED hx) - Epilepsy clinicians to determine f/u plan and consider further w/u, as clinically indicated. -Setve Rubin RN, MSN, C-POWDER EXPERT March 16, [address] Moore for review and recommendations. PLAN (as discussed with Dr. Moore): == Austen Howard PA-C 03/19/2019 8:58 AM Signed === Please route this encounter to the EMU Scheduling Pool ( P EMU ) or PMU Scheduling Pool ( P PMU ) through LOS AND Follow up === PHASE 1.0 AND 1.5 ORDER SYNOPSIS Patient: Tanya Ruiz ([id number]) (home) [phone] (cell) Insurance: Payor: ROMEO / Plan: ROMEO OAP / Product Type: PPO / Target Date: marleny Number of days requested: 4-5 days Admission Type: Regular Admission Location: Main [place] Purpose: Diagnosis and treatment options (potentially presurgical [...] ( P Neur Ep Keto ) via [employer] staff message) === Please route this encounter to the EMU Scheduling pool ( P EMU ) or PMU Scheduling pool ( P PMU ) through LOS AND Follow up === Scheduling coordinators: For all VNS patients being scheduled for REGINA, please schedule VNS off/on office visits. Austen Howard PA-C 03/19/2019 8:59 AM Signed Addended by: AUSTEN HOWARD PA-C on: 03/19/2019 08:59 AM Modules accepted: Orders, SmartSet Allergies As of Date: 03/16/2019 (Not on File) Date Reviewed: Never Reviewed Primary Visit Diagnosis:Partial symptomatic epilepsy with complex partial seizures, not intractable, without status epilepticus (HCC) [G40.209] Other Visit Diagnosis:Convulsions , unspecified convulsion type (HCC) [R56.9] Order(s):EEG MONITORING ADULT EMU (24 HOUR WITH VIDEO) [[id number]] Order #: [id number]: 1 FUTURE MRI BRAIN WO IVCON [[id number]] Order #: [id number] FUTURE Problem List As Of Date 03/16/2019 Noted Resolved Partial symptomatic epilepsy with complex parti*INVALID FOR* Encounter Status:Closed by STEVE RUBIN CNP on 03/16/19 Normal [facility] PROGRESSon 03-16-2019 PROGRESS HNO ID: [id number] Author: Steve Henley) Karan Service: ? Author Type: Nurse Practitioner Type: Progress Notes Filed: 03/16/2019 1:46 PM Note Text: [facility] Review of Records Patient: Tanya Ruiz Address: [address] [place] [id number] Impression: Review of records for Tanya Ruiz, a 33 year old female, being referred by Dr. 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 EEG report (02/2019) noted Multiple sharp waves localizing to right temporal lobe (T4 mostly) with a few with souov-xfn-yplt morphology. None of her typical events were [...] lobe (T4 mostly) with a few with gpgqf-kfy-dpgt morphology. None of her typical events were captured. Concerning for underlying structural issue or temporal lobe epilepsy. ? MRI Brain W/WO contrast (02/23/19, [facility]): per report IMPRESSION: 1. Chiari I malformation. 2. Otherwise unremarkable exam. ? CT brain WO contrast (08/24/16, [facility]): per report IMPRESSION: Normal CT head ? CT brain WO contrast (12/19/15, [facility]): per report IMPRESSION: NORMAL UNENHANCED CT SCAN OF THE BRAIN. NO EVIDENCE OF AN INTRACRANIAL HEMORRHAGE OR HEMATOMA. Referring MD: Dr. Sonam Menjivar STEWARD/STEWARDESS THIRD CLASS Recommendations: - Intake to request OSH MRI brain on CD (02/23/19, [facility]) - 3T MRI brain, epilepsy protocol - Visit with any epileptologist - Same day diagnostic EMU admission (potentially presurgical eval, if indicated by AED hx) - Epilepsy clinicians to determine f/u plan and consider further w/u, as clinically indicated. -Steve Rubin, RN, MSN, C-POWDER EXPERT March 16, [address] Moore for review and recommendations. PLAN (as discussed with Dr. Moore): == Normal [facility] CNPDanay 03-13-2019 CNPN Telephone (NIQ) TANYA RUIZ ([id number]) 1985 F Date Time Provider Department 03/13/19 RUTHY MOORE During your visit today, we recorded the following information about you: Bita Briseno 03/13/2019 2:37 PM Signed [facility] Initial Intake Interview March 13, 2019 2:25 PM Caller: Tanya Relationship to pt: self === Patient name: Tanya Ruiz Age: [age] year old Address: [address] [place] [address] (home) Insurance: Payor: CIGNA / Plan: CIGNA OAP / Product Type: PPO / Referred by: Physician: Dr. Sonam Menjivar Referring to: Any Reason for Evaluation: further evaluation and treatment to determine why daily events are occurring Previously evaluated at: Dr. Sonam Menjivar [facility] [address] [place] [address] === Age AND date of onset of [...] report- Care Everywhere PENDING: - Clinical notes Anna Hoyett COORD 03/15/2019 2:20 PM Signed OSH records received: March 15, 2019 -eeg PENDING: -addtl clinical notes Anna Hoyett COORD Anna [place]oyett COORD 03/20/2019 12:04 PM Signed Sent medical records request to [facility] Anna Hoyett COORD Anna Hoyett COORD 03/23/2019 4:40 PM Signed Images were pushed [place] COORD Allergies As of Date: 03/13/2019 (Not on File) Date Reviewed: Never Reviewed Reason for Visit: Future Appointment [256] Cmt: [place], Any Problem List As Of Date: 03/13/2019 (None) Encounter Status:Closed by BITA BRISENO on 03/13/19 Normal [facility] MR-MR BRAIN W WO CONT IMPORT on 02-23-2019 MR-MR BRAIN W WO CONT IMPORT Images were obtained outside of [facility] [id number] N Normal [facility] Vital Signs Date Time Vital Sign Value Performing Clinician Facility 10-16-2024 15:34-0400 Body mass index (BMI) [Ratio] 24.09 kg/m2 Marky Kobi DO Work Phone: [facility] 10-16-2024 15:34-0400 Body temperature 99.19 [degF] Marky Kobi DO Work Phone: [facility] 10-16-2024 15:34-0400 Body weight 61.69 kg Marky Kobi DO Work Phone: [facility] 10-16-2024 15:34-0400 Diastolic blood pressure 70 mm[Hg] Marky Kobi DO Work Phone: [facility] 10-16-2024 15:34-0400 Systolic blood pressure 122 mm[Hg] Marky Kobi DO Work Phone: [facility] 09-12-2024 15:10-0400 Body mass index (BMI) [Ratio] 23.71 kg/m2 Marky Kobi DO Work Phone: [facility] 09-12-2024 15:10-0400 Body weight 60.72 kg Marky Kobi DO Work Phone: [facility] 09-12-2024 15:10-0400 Diastolic blood pressure 80 mm[Hg] Marky Kobi DO Work Phone: [facility] 09-12-2024 15:10-0400 Systolic blood pressure 116 mm[Hg] Marky Kobi DO Work Phone: [facility] 07-24-2024 13:51-0500 Body mass index (BMI) [Ratio] 23.74 kg/m2 Marky Kobi DO Work Phone: [facility] 07-24-2024 13:51-0500 Body weight 60.78 kg Marky Kobi DO Work Phone: [facility] 07-24-2024 13:51-0500 Diastolic blood pressure 70 mm[Hg] Marky Kobi DO Work Phone: [facility] 07-24-2024 13:51-0500 Systolic blood pressure 122 mm[Hg] Marky Kobi DO Work Phone: [facility] 10-09-2019 15:15-0400 Body Temperature 98.29 [degF] [place] [facility] 10-09-2019 15:15-0400 BP Diastolic 81 mm[Hg] Evelina [facility] [place] 10-09-2019 15:15-0400 BP Systolic 138 mm[Hg] [facility] [place] 10-09-2019 15:15-0400 Pulse (Heart Rate) 88 /min [facility] [place] 10-09-2019 15:15-0400 Pulse Oximetry 99 % [facility] [place] 10-09-2019 15:15-0400 Respiratory Rate 14 /min Evelina Rodriguez[facility]ymission2[facility], [place] Encounters Encounter Date Encounter Type Care Provider Facility Start: 10-16-2024 End: 10-16-2024 Postop follow up visit related to original px Marky Kobi DO Work Phone: [facility] Comment on above: Postoperative visit; S/P GLENNA (total abdominal hysterectomy); Fever postop; Acute postoperative pain Start: 10-16-2024 End: 10-16-2024 ambulatory MARKY KOBI Not Available Start: 10-16-2024 End: 10-16-2024 Clinisync Result Encounter Marky Kobi DO Work Phone: [facility] External Department Unsolicited Start: 10-16-2024 End: 10-16-2024 Clinisync Result Encounter Marky Kobi DO Work Phone: [facility] External Department Unsolicited Start: 10-12-2024 End: 10-12-2024 Clinisync Result Encounter Marky Kobi DO Work Phone: [facility] External Department Unsolicited Start: 10-12-2024 End: 10-12-2024 Clinisync Result Encounter Marky Kobi DO Work Phone: [facility] External Department Unsolicited Start: 10-11-2024 End: 10-11-2024 ambulatory Marky Kobi [facility] Work Phone: Start: 10-11-2024 End: 10-11-2024 Departed Referred Marky Kobi DO Work Phone: [facility] Start: 10-11-2024 End: 10-11-2024 Clinisync Result Encounter Marky Kobi DO Work Phone: [facility] External Department Unsolicited Start: 10-11-2024 End: 10-17-2024 Clinisync Result Encounter Marky Kobi DO Work Phone: [facility] External Department Unsolicited Start: 10-11-2024 End: 10-17-2024 External Result Encounter Marky Kobi DO Work Phone: [facility] External Department Unsolicited Start: 10-04-2024 End: 10-04-2024 Clinisync Result Encounter Marky Kobi DO Work Phone: [facility] External Department Unsolicited Start: 10-04-2024 End: 10-04-2024 Clinisync Result Encounter Marky Kobi DO Work Phone: [facility] External Department Unsolicited Start: 09-24-2024 End: 09-24-2024 Emergency department patient visit NO PCP NO PCP [facility] Start: 09-22-2024 End: 09-22-2024 ambulatory [facility] Start: 09-12-2024 End: 09-12-2024 Office outpatient visit 15 minutes Marky Kobi DO Work Phone: [facility] Comment on above: Pre-op examination; Menorrhagia with irregular cycle; Pelvic pain in female; Dysmenorrhea; Dyspareunia, female; Abnormal uterine bleeding (AUB) Start: 09-12-2024 End: 09-12-2024 Preprocedural examination done Marky Kobi DO Work Phone: [facility] Start: 09-12-2024 End: 09-12-2024 ambulatory MARKY KOBI Not Available Start: 09-12-2024 End: 09-12-2024 Bamboo flowsheet Marky Kobi DO Work Phone: [facility] Start: 09-12-2024 End: 09-12-2024 Bamboo flowsheet Marky Kobi DO Work Phone: [facility] Start: 08-29-2024 End: 08-29-2024 ambulatory MARKY KOBI Not Available Start: 07-24-2024 End: 07-24-2024 Bamboo flowsheet Maryk Kobi DO Work Phone: [facility] Start: 07-24-2024 End: 07-24-2024 Bamboo flowsheet Marky Kobi DO Work Phone: [facility] Start: 07-24-2024 End: 07-24-2024 Office outpatient visit 15 minutes Marky Kobi DO Work Phone: [facility] Comment on above: Encounter to discuss procedure; Pelvic pain in female; Menorrhagia with irregular cycle; Abnormal uterine bleeding (AUB) Start: 07-24-2024 End: 07-24-2024 ambulatory MARKY KOBI Not Available Start: 05-14-2024 End: 05-15-2024 Emergency department patient visit YAW PATEL [facility] Start: 04-12-2024 End: 04-12-2024 ambulatory [facility] Start: 03-21-2024 End: 03-21-2024 ambulatory [facility] Start: 11-02-2023 End: 11-02-2023 ambulatory BLUE GERMAIN Not Available Start: 09-20-2023 End: 09-20-2023 ambulatory Marky Kobi Work Phone: [facility] Work Phone: Start: 09-20-2023 End: 09-20-2023 Departed Referred Marky Kobi Work Phone: [facility] Start: 05-11-2023 Patient encounter procedure Marky Kobi DO Work Phone: [facility] Start: 01-13-2023 End: 01-13-2023 Emergency department patient visit [id number] ROBY BUTLER [facility] Start: 07-10-2021 End: 07-10-[address] BENITA VALENTINO Facility: Start: 10-09-2019 End: 10-09-2019 Emergency department patient visit Evelina Rodriguez Work Phone: [facility] ED Procedures Date Procedure Procedure Detail Performing Clinician Start: 10-16-2024 ALL CBC WITH AUTO DIFF Marky Kobi DO Work Phone: Start: 10-16-2024 Urnls dip stick/tabl et rgnt non-auto w/o micrscp Marky Kobi DO Work Phone: Start: 10-12-2024 ALL CBC WITH AUTO DIFF Marky Kobi DO Work Phone: Start: 10-11-2024 PATHOLOGY REQUEST FO R LAB KARY Marky Kobi DO Work Phone: Start: 10-11-2024 ALL CBC WITH AUTO DIFF Marky Kobi DO Work Phone: Start: 10-04-2024 XR CHEST 2V Marky Fazi o DO Work Phone: Start: 10-04-2024 ALL CBC WITH AUTO DIFF Marky Kobi DO Work Phone: Start: 07-01-2023 Microscopic observat ion [Identifier] in Cervix by Cyto stain Marky Kobi DO Work Phone: History of total hysterectomy S/P GLENNA (total abdominal hysterectomy) Marky Kobi DO Work Phone: Plan of Treatment Date Care Activity Detail Author Start: 06-15-2027 Screening for malign ant neoplasm of cervix [facility] Start: 07-01-2026 Screening for malign ant neoplasm of cervix Pap Smear [facility] Start: 02-11-2025 Influenza vaccination Influenz a Vaccine (Season Ended) [facility] Start: 11-20-2024 End: 11-20-2024 Patient encounter procedure 11/20/2024 9:10 AM EDT Office Visit [facility] [address] [place] [id number] Marky Peace, [address] [place] [address] [facility] Start: 10-11-2024 [facility] Start: 09-12-2024 End: 09-12-2024 Patient encounter procedure [facility] Comment on above: Arrived Start: 08-29-2024 End: 08-29-2024 Professional / ancillary services management 08/29/2024 8:00 AM EDT Ancillary Procedure [facility] [address] [place] [id number] [facility] Start: 07-24-2024 End: 07-24-2025 US Pelvis US Pelvis w/ TV Imaging Routine Pelvic pain in female Abnormal uterine bleeding (AUB) Expected: 07/24/2024, Expires: 07/24/2025 [facility] Work Phone: Comment on above: Expected: 07/24/2024 , Expires: 07/24/2025 Start: 07-24-2024 End: 07-24-2024 Patient encounter procedure 07/24/2024 1:20 PM EST Consult [facility] [address] [place] [phone] Marky Peace, [address] [place] [address] Arrived [facility] Comment on above: Arrived Start: 02-12-2024 Influenza vaccination Influenza Vacc ine (#1) [facility] Start: 02-12-2020 Influenza vaccination Flu vacc ine (Season Ended) [place], [place] Start: 12-07-2008 Screening for malign ant neoplasm of cervix Cervical cancer screen [place], [place] Start: 12-07-2006 DTaP/Tdap/Td vaccine (1 - Tdap) DTaP/Tdap/Td vaccine (1 - Tdap) [place], [place] Start: 12-07-1988 Varicella vaccine (1 of 2 - 2-dose childhood series) Varicella vaccine (1 of 2 - 2-dose childhood series) [place] End: 10-09-2019 Basic metabolic 2000 panel Basic Metabolic Panel Lab STAT One Time for 1 Occurrences starting 10/09/2019 until 10/09/2019 [place] Comment on above: One Time for 1 Occur rences starting 10/09/2019 until 10/09/2019 End: 10-09-2019 CBC CBC Lab STAT One Time for 1 Occurrences starting 10/09/2019 until 10/09/2019 [place] Comment on above: One Time for 1 Occur rences starting 10/09/2019 until 10/09/2019 CBC W Auto Different ial panel - Blood CBC and differential Lab Routine Postoperative visit S/P GLENNA (total abdominal hysterectomy) Fever postop Ordered: 10/16/2024 [facility] Work Phone: Comment on above: Ordered: 10/16/2024 End: 10-09-2019 CT PELVIS W CONTRAST Additional Contrast? None CT PELVIS W CONTRAST Additional Contrast? None Imaging Routine Once for 1 Occurrences starting 10/09/2019 until 10/09/2019 [place] Comment on above: Once for 1 Occurrenc es starting 10/09/2019 until 10/09/2019 End: 10-09-2019 HCG Qualitative, Serum HCG Qualitative, Serum Lab STAT One Time for 1 Occurrences starting 10/09/2019 until 10/09/2019 [place] Comment on above: One Time for 1 Occur rences starting 10/09/2019 until 10/09/2019 Immunizations Immunization Date Immunization Notes Care Provider [facility] 03-27-2020 influenza, injectabl e, quadrivalent, contains preservative Marky Kobi DO Work Phone: [facility] 03-27-2020 influenza virus vacc ine, unspecified formulation Marky Kobi DO Work Phone: [facility] 03-05-2019 seasonal influenza, intradermal, preservative free Marky Kobi DO Work Phone: [facility] 03-09-2018 influenza, injectabl e, quadrivalent, preservative free Marky Kobi DO Work Phone: [facility] 01-05-2018 tetanus toxoid, redu ranjit diphtheria toxoid, and acellular pertussis vaccine, adsorbed Marky Kobi DO Work Phone: [facility] 07-29-2016 tetanus toxoid, redu ranjit diphtheria toxoid, and acellular pertussis vaccine, adsorbed Marky Kobi DO Work Phone: [facility] 02-18-2012 hepatitis B vaccine, adult dosage Marky Kobi DO Work Phone: [facility] 11-03-2006 hepatitis B vaccine, pediatric or pediatric/adolescent dosage Marky Kobi DO Work Phone: [facility] 09-22-2006 hepatitis B vaccine, pediatric or pediatric/adolescent dosage Marky Kobi DO Work Phone: [facility] 09-22-2006 meningococcal polysaccharide (groups A, C, Y and W-135) diphtheria toxoid conjugate vaccine (MCV4P) Marky Kobi DO Work Phone: [facility] 09-22-2006 tetanus toxoid, redu ranjit diphtheria toxoid, and acellular pertussis vaccine, adsorbed Marky Kobi DO Work Phone: [facility] 10-23-1999 measles, mumps and r ubella virus vaccine Marky Kobi DO Work Phone: [facility] Payers Date Payer Category Payer Self-pay [id number] 2023 Unknown [id number] 2022 [facility] [employer] [facility] er [id number] 2021 Unknown [id number] 2019 Unknown [facility] xxxxxxxxxxxx 2019-Present [phone] [address] [place] [address] xxxxxxxxxxxx [id number] 2014 Private Health Insurance [employer] O xxxxxxxxxxx 2014-Present [phone] [address] [place] [address] xxxxxxxxxxx [id number] 1987 Unknown [id number] 1987 Unknown [id number] .173 1987 Unknown [id number] [id number] .1286 1987 Unknown [id number] .1286 1987 Unknown [id number] [id number] .1286 1987 Unknown [id number] [id number] .1286 1987 Unknown [id number] [id number] .1286 1987 Unknown [id number] [id number] .1259 1987 Unknown [id number] [id number] .1259 1987 Unknown [id number] [id number] .9 1987 Unknown [id number] [id number] .9 1987 Unknown [id number] [id number] .1259 1959 Unknown [id number] 1959 Unknown [id number] Unknown [id number] Unknown [id number] .531 Social History Date Type Detail Facility Start: 08-24-2016 Tobacco smoking stat [facility] Current every day smoker [place], [place] History of tobacco use Cigarette Smoker [place] Start: 08-24-2016 End: 11-02-2023 Cigarettes smoked current (pack per day) - Reported [place], [place] Start: 08-24-2016 Alcohol intake Current drinke r of alcohol (finding) [place] Start: 12-19-2015 Alcohol Comment rare [place] Start: 1985 Sex Assigned At Not on file [place], [place] Exposure to SARS-CoV -2 (event) Unable to assess [place] Start: 05-13-2020 End: 05-11-2023 Tobacco smoking status NHIS Ex-smoker (finding) [facility] Start: 1985 Sex Assigned At Female F [facility] History of tobacco use Current smoker [facility] Start: 05-11-2023 Tobacco use and exposure Smokeless tobacco non-user [facility] Start: 11-02-2023 End: 07-24-2024 Alcoholic beverage intake Lifetime non-drinker (finding) [facility] Start: 08-01-2023 End: 11-02-2023 Tobacco use panel [facility] Start: 05-11-2023 Alcohol Comment caffeine: none [facility] Start: 08-25-2022 Gender identity Identifies as female gender (finding) [facility] Start: 10-13-2024 Sex Female (finding) [facility] History of Present illness Narrative 10-16-2024 Jaki Caldera, [employer] - 10/16/2024 3:00 PM EDT Note Date & Type Note Facility 10-16-2024 History of Presen t illness Narrative Reason for Appointment: Patient ID: Tanya Ruiz is a 38 y.o. female who presents for Post-op Visit (Pt present today for 1 week post operative visit. Pt had a GLENNA w/bilateral salpingectomy w/cystoscopy on 10/11/2024.) Patient presents today for 1 Week Post Op Follow Up appointment. MEDICATIONS Current Outpatient Medications Medication Instructions Ajovy 225 mg, Every 30 days Cenobamate (XCOPRI, 350 MG DAILY DOSE, PO) Oral indomethacin (INDOCIN) 50 mg, Oral, 2 times daily with meals SUMAtriptan (IMITREX) 50 mg, Oral, Once as needed Trileptal 300 mg, Oral, 2 times daily Xcopri 150 mg, Oral, Daily ALLERGIES Allergies Allergen Reactions Bupropion Palpitations PROBLEMS Active Ambulatory Problems Diagnosis Date Noted Chiari malformation type I (CMS/HCC) 05/11/2023 LAURA (generalized anxiety disorder) (CMS/HCC) 05/11/2023 Migraine with visual aura (CMS/HCC) 05/11/2023 Moderate episode of recurrent major depressive disorder (CMS/HCC) 05/11/2023 Partial symptomatic epilepsy with complex partial seizures, intractable, without status epilepticus 03/16/2019 Epilepsy 05/11/2023 Anxiety 05/11/2023 Colon polyp 05/11/2023 Hemorrhoids, external 05/11/2023 MVP (mitral valve prolapse) 05/11/2023 Tension headache 05/11/2023 Urinary frequency 05/11/2023 Elevated blood pressure reading in office without diagnosis of hypertension 05/11/2023 Annual physical exam 05/11/2023 Nicotine use disorder 04/06/2019 Spell of altered consciousness 07/18/2023 Temporal lobe epilepsy (CMS/HCC) 07/18/2023 Unspecified hemorrhoids 07/18/2023 Partial epilepsy with impairment of consciousness 04/05/2019 Menorrhagia with regular cycle 08/29/2023 Abnormal glandular Papanicolaou smear of cervix 08/29/2023 HPV in female 08/29/2023 Pain in female genitalia on intercourse 08/29/2023 Resolved Ambulatory Problems Diagnosis Date Noted Genital warts 05/11/2023 Past Medical History: Diagnosis Date Absence epilepsy (HCC) ([facility]) Depression ([facility]) Fecal smearing Frontal sinusitis History of medical problems Left flank pain Nasal obstruction Nicotine dependence, cigarettes, uncomplicated Palpitations Serous otitis media Tension-type headache, unspecified, not intractable HISTORY PAST MEDICAL HISTORY SOCIAL HISTORY Past Medical History: Diagnosis Date Absence epilepsy (HCC) ([facility]) Anxiety Chiari malformation type I ([facility]) Colon polyp Depression ([facility]) Epilepsy Fecal smearing per history Frontal sinusitis LAURA (generalized anxiety disorder) ([facility]) Genital warts Hemorrhoids, external History of medical problems Needle stick injury-07/14/13,Davita/Kensett Left flank pain MVP (mitral valve prolapse) Nasal obstruction Nicotine dependence, cigarettes, uncomplicated Palpitations Serous otitis media left ear Temporal lobe epilepsy ([facility]) Tension headache Tension-type headache, unspecified, not intractable Unspecified hemorrhoids Urinary frequency Social History Tobacco Use Smoking status: Former Current packs/day: 0.50 Types: Cigarettes Smokeless tobacco: Never Vaping Use Vaping status: Never Used Substance Use Topics Alcohol use: Never Comment: caffeine: none Drug use: Never FAMILY HISTORY Family History Problem Relation Name Age of Onset Hyperlipidemia Mother Hypertension Mother Cancer Mother Colon cancer Mother Retinal detachment Mother Hyperlipidemia Father Heart attack Father Hypertension Father Atrial fibrillation Father Aortic stenosis Father Sleep apnea Father obstructive sleep apnea Heart attack Maternal Grandmother Multiple myeloma Maternal Grandfather No Known Problems Daughter Cardiomyopathy Mother's Sister Viral SURGICAL HISTORY Past Surgical History: Procedure Laterality Date ADENOIDECTOMY COLONOSCOPY Colon Polyp removed COLONOSCOPY 05/2020 hemorrhoids/ditty ENDOMETRIAL ABLATION 10/14/2023 OTHER SURGICAL HISTORY Fracture, left elbow TONSILLECTOMY TOTAL ABDOMINAL HYSTERECTOMY 10/11/2024 GLENNA, bilateral salpingectomy w/cystoscopy VAGINAL DELIVERY 2012 Spontaneous Delivery REVIEW OF SYSTEMS Review of Systems: Review of Systems Constitutional: Negative. HENT: Negative. Eyes: Negative. Respiratory: Negative. Cardiovascular: Negative. Gastrointestinal: Negative. Genitourinary: Negative. Musculoskeletal: Negative. Skin: Negative. Neurological: Negative. All other systems reviewed and are negative. Hematological: Negative. Endocrine: Negative. Allergic/Immunologic: Negative. OBJECTIVE Objective: Physical Exam Constitutional: Appearance: Normal appearance. She is well-developed. Cardiovascular: Rate and Rhythm: Normal rate and regular rhythm. Pulmonary: Effort: Pulmonary effort is normal. Breath sounds: Normal breath sounds. Abdominal: General: Bowel sounds are normal. There is no distension. Palpations: Abdomen is soft. Tenderness: There is no abdominal tenderness. There is no guarding or rebound. Musculoskeletal: General: No swelling. Normal range of motion. Right lower leg: No edema. Left lower leg: No edema. Neurological: Mental Status: She is alert and oriented to person, place, and time. Skin: General: Skin is warm and dry. Psychiatric: Mood and Affect: Mood normal. Behavior: Behavior normal. Vitals and nursing note reviewed. Exam conducted with a insurance account manager present. Vitals: Estimated body mass index is 24.09 kg/m as calculated from the following: Height as of 11/02/23: 5' 3 . Weight as of this encounter: 136 lb. BP: 122/70 Patient's last menstrual period was 09/10/2024 (approximate). ASSESSMENT & PLAN ICD-10-CM 1. Postoperative visit Z48.89 POCT urinalysis dipstick manually resulted CBC and differential 2. S/P GLENNA (total abdominal hysterectomy) Z90.710 POCT urinalysis dipstick manually resulted CBC and differential 3. Fever postop R50.82 CBC and differential 4. Acute postoperative pain G89.18 Pt presents for postop check from [facility] on 10/11/24. Pt is very sore. Incision healing well with no s/s of infection. Pt had low grade fever, given cbc to have obtained. Pt given script for percocet for postop pain. Pt to return in 5 weeks for 6 week postop check. Documented by Jaki Caldera LPN on behalf of: Marky Peace DO documented in this encounter [facility] History of Present illness Narrative 09-12-2024 Jaki Caldera LPN - 09/12/2024 3:10 PM EDT Note Date & Type Note Facility 04-02-2025 History of Presen t illness Narrative Reason for Appointment: Patient ID: Tanya Ruiz is a 38 y.o. female who presents for Pre-op Visit Patient presents today for Pre Op appointment. Patient is scheduled to undergo Da Barbara assisted Laparoscopic Hysterectomy, possible exploratory laparotomy, possible BSO, possible cystoscopy on 10/11/[address] Peace at [facility]. MEDICATIONS Current Outpatient Medications Medication Instructions Ajovy 225 mg, Every 30 days Cenobamate (XCOPRI, 350 MG DAILY DOSE, PO) Oral indomethacin (INDOCIN) 50 mg, Oral, 2 times daily with meals SUMAtriptan (IMITREX) 50 mg, Oral, Once as needed Trileptal 300 mg, Oral, 2 times daily Xcopri 150 mg, Oral, Daily ALLERGIES Allergies Allergen Reactions Bupropion Palpitations PROBLEMS Active Ambulatory Problems Diagnosis Date Noted Chiari malformation type I ([facility]) 05/11/2023 LAURA (generalized anxiety disorder) ([facility]) 05/11/2023 Migraine with visual aura ([facility]) 05/11/2023 Moderate episode of recurrent major depressive disorder ([facility]) 05/11/2023 Partial symptomatic epilepsy with complex partial seizures, intractable, without status epilepticus 03/16/2019 Epilepsy 05/11/2023 Anxiety 05/11/2023 Colon polyp 05/11/2023 Hemorrhoids, external 05/11/2023 MVP (mitral valve prolapse) 05/11/2023 Tension headache 05/11/2023 Urinary frequency 05/11/2023 Elevated blood pressure reading in office without diagnosis of hypertension 05/11/2023 Annual physical exam 05/11/2023 Nicotine use disorder 04/06/2019 Spell of altered consciousness 07/18/2023 Temporal lobe epilepsy ([facility]) 07/18/2023 Unspecified hemorrhoids 07/18/2023 Partial epilepsy with impairment of consciousness 04/05/2019 Menorrhagia with regular cycle 08/29/2023 Abnormal glandular Papanicolaou smear of cervix 08/29/2023 HPV in female 08/29/2023 Pain in female genitalia on intercourse 08/29/2023 Resolved Ambulatory Problems Diagnosis Date Noted Genital warts 05/11/2023 Past Medical History: Diagnosis Date Absence epilepsy (HCC) ([facility]) Depression ([facility]) Fecal smearing Frontal sinusitis History of medical problems Left flank pain Nasal obstruction Nicotine dependence, cigarettes, uncomplicated Palpitations Serous otitis media Tension-type headache, unspecified, not intractable HISTORY PAST MEDICAL HISTORY SOCIAL HISTORY Past Medical History: Diagnosis Date Absence epilepsy (HCC) ([facility] Anxiety Chiari malformation type I ([facility]) Colon polyp Depression ([facility]) Epilepsy ([facility]) Fecal smearing per history Frontal sinusitis LAURA (generalized anxiety disorder) ([facility]) Genital warts Hemorrhoids, external History of medical problems Needle stick injury-07/14/13,Davita/Kensett Left flank pain MVP (mitral valve prolapse) Nasal obstruction Nicotine dependence, cigarettes, uncomplicated Palpitations Serous otitis media left ear Temporal lobe epilepsy ([facility]) Tension headache Tension-type headache, unspecified, not intractable Unspecified hemorrhoids Urinary frequency Social History Tobacco Use Smoking status: Former Current packs/day: 0.50 Types: Cigarettes Smokeless tobacco: Never Vaping Use Vaping status: Never Used Substance Use Topics Alcohol use: Never Comment: caffeine: none Drug use: Never FAMILY HISTORY Family History Problem Relation Name Age of Onset Hyperlipidemia Mother Hypertension Mother Cancer Mother Colon cancer Mother Retinal detachment Mother Hyperlipidemia Father Heart attack Father Hypertension Father Atrial fibrillation Father Aortic stenosis Father Sleep apnea Father obstructive sleep apnea Heart attack Maternal Grandmother Multiple myeloma Maternal Grandfather No Known Problems Daughter Cardiomyopathy Mother's Sister Viral SURGICAL HISTORY Past Surgical History: Procedure Laterality Date ADENOIDECTOMY COLONOSCOPY Colon Polyp removed COLONOSCOPY 05/2020 hemorrhoids/ditty ENDOMETRIAL ABLATION 10/14/2023 OTHER SURGICAL HISTORY Fracture, left elbow TONSILLECTOMY VAGINAL DELIVERY 2012 Spontaneous Delivery REVIEW OF SYSTEMS Review of Systems: Review of Systems Constitutional: Negative. HENT: Negative. Eyes: Negative. Respiratory: Negative. Cardiovascular: Negative. Gastrointestinal: Negative. Genitourinary: Positive for dyspareunia, menstrual problem and pelvic pain. Musculoskeletal: Negative. Skin: Negative. Neurological: Negative. All other systems reviewed and are negative. Hematological: Negative. Endocrine: Negative. Allergic/Immunologic: Negative. OBJECTIVE Objective: Physical Exam Constitutional: Appearance: Normal appearance. She is well-developed. Cardiovascular: Rate and Rhythm: Normal rate and regular rhythm. Pulmonary: Effort: Pulmonary effort is normal. Breath sounds: Normal breath sounds. Abdominal: General: Bowel sounds are normal. There is no distension. Palpations: Abdomen is soft. Tenderness: There is no abdominal tenderness. There is no guarding or rebound. Musculoskeletal: General: No swelling. Normal range of motion. Right lower leg: No edema. Left lower leg: No edema. Neurological: Mental Status: She is alert and oriented to person, place, and time. Skin: General: Skin is warm and dry. Psychiatric: Mood and Affect: Mood normal. Behavior: Behavior normal. Vitals and nursing note reviewed. Exam conducted with a insurance account manager present. Vitals: Estimated body mass index is 23.71 kg/m as calculated from the following: Height as of 11/02/23: 5' 3 . Weight as of this encounter: 133 lb 13.9 oz. BP: 116/80 Patient's last menstrual period was 09/10/2024 (approximate). ASSESSMENT & PLAN ICD-10-CM 1. Pre-op examination Z01.818 2. Pelvic pain in female R10.2 3. Menorrhagia with irregular cycle N92.1 4. Abnormal uterine bleeding (AUB) N93.9 5. Dysmenorrhea N94.6 6. Dyspareunia, female N94.10 Pre Op: Patient is doing well but has complaints of pelvic pain, menorrhagia, AUB, dysmenorrhea and dyspareunia. I have discussed conservative management vs. surgical management with the patient in detail and patient desires surgical management at this time. Patient will undergo Da Barbara assisted Laparoscopic Hysterectomy, possible exploratory laparotomy, possible BSO, possible cystoscopy on 10/11/24. Surgical consents were signed, mmc was reviewed, and patient is to proceed to [facility] OR. Follow Up: Patient is to follow up at 1 & 6 weeks post operative to assess proper healing and recovery from procedure. Documented by Jaki Caldera LPN on behalf of: Marky Peace DO documented in this encounter [facility] History of Present illness Narrative 07-24-2024 Jaki Caldera LPN - 07/24/2024 1:20 PM EST Note Date & Type Note Facility 07-24-2024 History of Presen t illness Narrative Reason for Appointment: Patient ID: Tanya Ruiz is a 38 y.o. female who presents for Discuss procedure Patient presents today for Acute Visit. and Consult appointment. MEDICATIONS Current Outpatient Medications Medication Instructions Ajovy 225 mg, Every 30 days indomethacin (INDOCIN) 50 mg, Oral, 2 times daily with meals Magnesium 400 mg, Oral, Daily SUMAtriptan (IMITREX) 50 mg, Oral, Once as needed Trileptal 300 mg, Oral, 2 times daily Xcopri 150 mg, Oral, Daily zinc 50 mg, Oral, Daily RT ALLERGIES Allergies Allergen Reactions Bupropion Palpitations PROBLEMS Active Ambulatory Problems Diagnosis Date Noted Chiari malformation type I ([facility]) 05/11/2023 LUARA (generalized anxiety disorder) ([facility]) 05/11/2023 Migraine with visual aura ([facility]) 05/11/2023 Moderate episode of recurrent major depressive disorder ([facility]) 05/11/2023 Partial symptomatic epilepsy with complex partial seizures, intractable, without status epilepticus ([facility]) 03/16/2019 Epilepsy ([facility]) 05/11/2023 Anxiety 05/11/2023 Colon polyp 05/11/2023 Hemorrhoids, external 05/11/2023 MVP (mitral valve prolapse) 05/11/2023 Tension headache 05/11/2023 Urinary frequency 05/11/2023 Elevated blood pressure reading in office without diagnosis of hypertension 05/11/2023 Annual physical exam 05/11/2023 Nicotine use disorder 04/06/2019 Spell of altered consciousness 07/18/2023 Temporal lobe epilepsy ([facility]) 07/18/2023 Unspecified hemorrhoids 07/18/2023 Partial epilepsy with impairment of consciousness ([facility]) 04/05/2019 Menorrhagia with regular cycle 08/29/2023 Abnormal glandular Papanicolaou smear of cervix 08/29/2023 HPV in female 08/29/2023 Pain in female genitalia on intercourse 08/29/2023 Resolved Ambulatory Problems Diagnosis Date Noted Genital warts 05/11/2023 Past Medical History: Diagnosis Date Absence epilepsy (HCC) ([facility]) Depression ([facility]) Fecal smearing Frontal sinusitis History of medical problems Left flank pain Nasal obstruction Nicotine dependence, cigarettes, uncomplicated Palpitations Serous otitis media Tension-type headache, unspecified, not intractable HISTORY PAST MEDICAL HISTORY SOCIAL HISTORY Past Medical History: Diagnosis Date Absence epilepsy (HCC) ([facility]) Anxiety Chiari malformation type I ([facility]/HCC) Colon polyp Depression ([facility]/HCC) Epilepsy ([facility]/HCC) Fecal smearing per history Frontal sinusitis LAURA (generalized anxiety disorder) ([facility]) Genital warts Hemorrhoids, external History of medical problems Needle stick injury-07/14/13,[place] Left flank pain MVP (mitral valve prolapse) Nasal obstruction Nicotine dependence, cigarettes, uncomplicated Palpitations Serous otitis media left ear Temporal lobe epilepsy ([facility]/HCC) Tension headache Tension-type headache, unspecified, not intractable Unspecified hemorrhoids Urinary frequency Social History Tobacco Use Smoking status: Former Current packs/day: 0.50 Types: Cigarettes Smokeless tobacco: Never Vaping Use Vaping status: Never Used Substance Use Topics Alcohol use: Never Comment: caffeine: none Drug use: Never FAMILY HISTORY Family History Problem Relation Name Age of Onset Hyperlipidemia Mother Hypertension Mother Cancer Mother Colon cancer Mother Retinal detachment Mother Hyperlipidemia Father Heart attack Father Hypertension Father Atrial fibrillation Father Aortic stenosis Father Sleep apnea Father obstructive sleep apnea Heart attack Maternal Grandmother Multiple myeloma Maternal Grandfather No Known Problems Daughter Cardiomyopathy Mother's Sister Viral SURGICAL HISTORY Past Surgical History: Procedure Laterality Date ADENOIDECTOMY COLONOSCOPY Colon Polyp removed COLONOSCOPY 05/2020 hemorrhoids/ditty ENDOMETRIAL ABLATION 10/14/2023 OTHER SURGICAL HISTORY Fracture, left elbow TONSILLECTOMY VAGINAL DELIVERY 2012 Spontaneous Delivery REVIEW OF SYSTEMS Review of Systems: Review of Systems Constitutional: Negative. HENT: Negative. Eyes: Negative. Respiratory: Negative. Cardiovascular: Negative. Gastrointestinal: Negative. Genitourinary: Positive for menstrual problem and pelvic pain. Musculoskeletal: Negative. Skin: Negative. Neurological: Negative. All other systems reviewed and are negative. Hematological: Negative. Endocrine: Negative. Allergic/Immunologic: Negative. OBJECTIVE Objective: Physical Exam Constitutional: Appearance: Normal appearance. She is well-developed. Cardiovascular: Rate and Rhythm: Normal rate and regular rhythm. Pulmonary: Effort: Pulmonary effort is normal. Breath sounds: Normal breath sounds. Abdominal: General: Bowel sounds are normal. There is no distension. Palpations: Abdomen is soft. Tenderness: There is no abdominal tenderness. There is no guarding or rebound. Musculoskeletal: General: No swelling. Normal range of motion. Right lower leg: No edema. Left lower leg: No edema. Neurological: Mental Status: She is alert and oriented to person, place, and time. Skin: General: Skin is warm and dry. Psychiatric: Mood and Affect: Mood normal. Behavior: Behavior normal. Vitals and nursing note reviewed. Exam conducted with a insurance account manager present. Vitals: Estimated body mass index is 23.74 kg/m as calculated from the following: Height as of 11/02/23: 5' 3 . Weight as of this encounter: 134 lb. BP: 122/70 No LMP recorded. ASSESSMENT & PLAN ICD-10-CM 1. Encounter to discuss procedure Z71.89 2. Pelvic pain in female R10.2 3. Menorrhagia with regular cycle N92.0 4. Abnormal uterine bleeding (AUB) N93.9 Pt presents with pain and heavy bleeding. Pt had ablation last October. Pt desires surgical management at this time. Pt to be scheduled to for robotic hysterectomy with poss BSO - pt has pain on right side. Pt to return for preop exam. Pt wants right ovary out unless left looks worse. Documented by Jaki Caldera LPN on behalf of: Marky Peace DO documented in this encounter [facility] Clinical Note 06-23-2022 Note Date & Type [...] signed by Kwasi Reis on 06/23/[address] [facility] General Manager In Training Evaluation note Note Date & Type Note Facility Evaluation note No assessment information availa [facility] Work Phone: Evaluation note Note Date & Type Note Facility Evaluation note Diagnosis LAURA (generalized anxiety disorder) (CMS/HCC)- Primary Generalized anxiety disorder Partial symptomatic epilepsy with complex partial seizures, intractable, without status epilepticus (CMS/HCC) Migraine with visual aura (CMS/HCC) Moderate episode of recurrent major depressive disorder (CMS/HCC) Elevated blood pressure reading in office without diagnosis of hypertension Annual physical exam Routine general medical examination at a health care facility Elevated blood pressure reading in office without diagnosis of hypertension- Primary LAURA (generalized anxiety disorder) (CMS/HCC) Generalized anxiety disorder Encounter to discuss procedure Pelvic pain in female Unspecified symptom associated with female genital organs Menorrhagia with irregular cycle Abnormal uterine bleeding (AUB) documented in this encounter [facility] Healthcare Evaluation note Note Date & Type Note Facility Evaluation note Diagnosis LAURA (generalized anxiety disorder) (CMS/HCC)- Primary Generalized anxiety disorder Partial symptomatic epilepsy with complex partial seizures, intractable, without status epilepticus Migraine with visual aura (CMS/HCC) Moderate episode of recurrent major depressive disorder (CMS/HCC) Elevated blood pressure reading in office without diagnosis of hypertension Annual physical exam Routine general medical examination at a health care facility Elevated blood pressure reading in office without diagnosis of hypertension- Primary LAURA (generalized anxiety disorder) (CMS/HCC) Generalized anxiety disorder Pre-op examination Menorrhagia with irregular cycle Pelvic pain in female Unspecified symptom associated with female genital organs Dysmenorrhea Dyspareunia, female Abnormal uterine bleeding (AUB) documented in this encounter [facility] Evaluation note Note Date & Type Note Facility Evaluation note Diagnosis LAURA (generalized anxiety disorder) (CMS/HCC)- Primary Generalized anxiety disorder Partial symptomatic epilepsy with complex partial seizures, intractable, without status epilepticus Migraine with visual aura (CMS/HCC) Moderate episode of recurrent major depressive disorder (CMS/HCC) Elevated blood pressure reading in office without diagnosis of hypertension Annual physical exam Routine general medical examination at a health care facility Elevated blood pressure reading in office without diagnosis of hypertension- Primary LAURA (generalized anxiety disorder) (CMS/HCC) Generalized anxiety disorder Postoperative visit S/P GLENNA (total abdominal hysterectomy) Acquired absence of both cervix and uterus Fever postop Postprocedural fever Acute postoperative pain Other acute postoperative pain documented in this encounter [facility] Healthcare Summary Purpose Family History No Family History Records Found Relationship Condition Age at Onset Recorded Date/T gabriel Not Specified Malignant neoplasm of colon Unknown Hypertension Unknown Hyperlipidemia Unknown father Myocardial infarction Unknown Not Specified Malignant neoplasm Unknown Relationship Condition Age at Onset Recorded Date/T gabriel mother Malignant neoplasm of colon Unknown Hypertension Unknown Hyperlipidemia Unknown father Myocardial infarction Unknown mother Malignant neoplasm Unknown Advance Directives No Advanced Directives Records FoundDocuments on File Type Date Recorded 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 Advance Directives and Living Will Power of Want Ad Receiver Advance Directive Response Recorded Date/ Time Advance Directives No April 1:23pm Hospital Course Note HNO ID: [id number] Author: Patricia Smith Service: Neurology Adult Epilepsy [...] section and content) DATE CREATED AUTHOR 04/10/2019 [facility] DATE CREATED AUTHOR AUTHOR'S ORGANIZ ATION 01/19/2022 [facility] DATE CREATED AUTHOR AUTHOR'S ORGANIZ ATION 06/23/2022 [facility] dical Specialist DATE CREATED AUTHOR AUTHOR'S ORGANIZ ATION 01/14/2023 [facility] DATE CREATED AUTHOR AUTHOR'S ORGANIZ ATION 09/25/2024 [facility] DATE CREATED AUTHOR AUTHOR'S ORGANIZ ATION 10/17/2024 [facility] DATE CREATED AUTHOR AUTHOR'S ORGANIZ ATION 10/19/2024 [facility] d[facility] Specialists EPIC Reason for Visit (unrecogniz ed section and content) Reason Comments Rectal Bleeding arrives by ems from home with severe rectal pain. patient states pain started after sitting on toilet for and hour Reason Comments Discuss procedure Reason Comments Pre-op Visit Reason Comments Post-op Visit Pt present today for 1 week post operative visit. Pt had a GLENNA w/bilateral salpingectomy w/cystoscopy on 10/11/2024. Care Teams (unrecognized sec tion and content) Team Status: Inactive Member Role Status Dates Marky Peace Attending Provider Active Start: Ap 2023 End: September 20, 2023 Can Closing Machine Operator Relationship Specialty Start Date End Date Shaikh Osei MD [address] [place] [address] PCP - [employer] 06/13/23 Shaikh Osei MD [address] [place] [phone] PCP - General Internal Medicine 08/29/23 Can Closing Machine Operator Relationship Specialty Start Date End Date Shaikh Osei MD [address] [place] [phone] PCP - [employer] 06/13/23 Shaikh Osei MD [address] [place] [phone] PCP - General Internal Medicine 08/29/23 Can Closing Machine Operator Relationship Specialty Start Date End Date Shaikh Osei MD [address] [place] [phone] PCP - [employer] 06/13/23 Shaikh Osei MD [address] [place] [phone] PCP - General Internal Medicine 08/29/23 Can Closing Machine Operator Relationship Specialty Start Date End Date Shaikh Osei MD [address] [place] [phone] PCP - [employer] 06/13/23 Unallocated, Dimitry Moran MD [address] [place] [address] PCP - General Family Medicine 09/25/24 Team Status: Inactive Member Role Status Dates Marky Peace DO Attending Provider Active Start : October 11, 2024 End: October 11, 2024 Can Closing Machine Operator Relationship Specialty Start Date End Date Shaikh Osei MD [address] [place] [address] PCP - [employer] 06/13/23 UnallocatedDimitry MD [address] [place] [address] PCP - General Family Medicine 09/25/24 Can Closing Machine Operator Relationship Specialty Start Date End Date Shaikh Osei MD [address] [place] [address] PCP - [employer] 06/13/23 UnallocatedDimitry MD [address] [place] [address] PCP - General Family Medicine 09/25/24 Goals (unrecognized section and content) Goals may be documented in a n alternate sectionGoals may be documented in an alternate section FOR RECORDS PERTAINING TO PATIENTS [...] BE BASED ON THE PRIMARY CLINICAL RECORDS. [facility] provides no warranty or guarantee of the accuracy or completeness of information in this document.
[2024-10-22 20:46] LABS: Hemoglobin 7.8 g/dL (12.0-16.0); Mean Corpuscular HGB Conc 33.6 g/dL (29.9-35.2); Mean Corpuscular Hemoglobin 31.3 pg (26.7-34.0); Mean Corpuscular Volume 93.2 fL (81.0-99.0); Mean Platelet Volume 8.9 fL (9.5-13.5); Platelet Count 398 10^3/uL (150-450); Red Blood Count 2.49 10^6/uL (4.20-5.40); White Blood Count 10.4 10^3/uL (4.0-11.0)
--- NOTE | 2024-10-22 20:52 | ED_ITS ---
HPI - Female Genitourinary General Chief complaint: OB/Uterine Contractions Stated complaint: PAIN AND BLEEDING Time Seen by Provider: 10/22/24 20:31 Source: patient Mode of arrival: walk-in Limitations: no limitations History of Present Illness HPI Narrative: This 38-year-old female who is postop hysterectomy on October [address] Peace presents for evaluation of pain and bleeding. She states the symptoms started l ast week. She was seen in Dr. Peace's office because she was feeling feverish and it was thought that she was having hormonal imbalance after the hysterectomy. Since that time she has been having some light vaginal bleeding which has become heavier in the past day. She called Dr. Peace's office and was referred to the emergency department. She has pain in right lower quadrant of her abdomen. She is not having any nausea or vomiting. She had a normal bowel movement earlier today. She states that when she went to the bathroom this morning the toilet was filled with blood. She had some blood work done last week that showed that she was mildly anemic and she was placed on iron by Dr. Peace. She is not having any chest pain or shortness of breath. She denies any dizziness or syncope. She has been using ibuprofen 800 and Percocet for pain. Related Data Home Medications ?Medication ?Instructions ?Recorded ?Confirmed cenobamate 150 mg tablet (Xcopri) 150 mg PO DAILY 09/1210/22/24 oxcarbazepine 300 mg tablet 450 mg PO BID 10/05/2306/06 sumatriptan succinate 50 mg tablet 50 mg PO Q2H PRN mi graine headache 10/05/23 10/11/24 fremanezumab-vfrm 225 mg/1.5 mL mg subcut 10/22/24 subcutaneous auto-injector (Ajovy) polysaccharide iron complex 180 mg mg 10/22/24 iron capsule (Pro Fe) Previous Rx's ?Medication ?Instructions ?Recorded ibuprofen 800 mg tablet 800 mg PO Q8H PRN pain 14 da ys #40 10/11/24 tabs oxycodone-acetaminophen 5 mg-325 1 tab PO Q6H PRN pain 7 days #28 10/11/24 mg tablet (Percocet) tabs Allergies Allergy/AdvReac Type Severity Reaction Status Date / Time bupropion Allergy Palpitation Verified 10/22/24 20:07 s Review of Systems ROS Status of ROS 10 or more systems reviewed and unremark able except as noted in history and below PFSH PFS Medical History (Updated 10/22/24 @ 22:37 by Haydee Mancilla MD) Colon polyp ?K63.5 - Polyp of colon (ICD-10) Chiari malformation type I ?G93.5 - Compression of brain (ICD-10) Depression ?F32.A - Depression, unspecified (ICD-10) Anxiety ?F41.9 - Anxiety disorder, unspecified (ICD-10) COVID-19 ?U07.1 - COVID-19 (ICD-10) Vertigo ?R42 - Dizziness and giddiness (ICD-10) Seizures ?R56.9 - Unspecified convulsions (ICD-10) Migraine ?G43.909 - Migraine, unspecified, not intractable, without status migrainosus (ICD-10) Mitral valve prolapse ?I34.1 - Nonrheumatic mitral (valve) prolapse (ICD-10) Epilepsy ?G40.909 - Epilepsy, unspecified, not intractable, without status epilepticus (ICD-10) Surgical History History of endometrial ablation (10/14/23) ?Z98.890 - Other specified postprocedural states (ICD-10) History of colonoscopy ?Z98.890 - Other specified postprocedural states (ICD-10) History of tonsillectomy ?Z90.89 - Acquired absence of other organs (ICD-10) Family History (Updated 10/04/24 @ 12:44 by Karis Cotto) Other Atrial fibrillation Family history of COPD (chronic obstructive pulmonary disease) Family history of colon cancer Family history of hypertension Family history of myocardial infarction Family history of thyroid cancer Multiple myeloma Social History (Updated 10/05/23 @ 14:47 by Uzma Chairez NP) Within the past year, how often did you have a drink containing alcohol: monthly or less Smoking status: Former smoker Do you use any of these nicotine containing products: vaping products Non-prescribed substance use: denies use 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 Highest level of school completed/degree received: Associate degree: academic program Little interest or pleasure in doing things: not at all Feeling down, depressed, or hopeless: not at all Exam Narrative Exam Narrative: Vital signs and Nursing Notes reviewed: Patient is afebrile with a normal pulse, normal blood pressure, she is not hypoxic with pulse ox of 100% on room air General: Well-appearing female, she is awake, alert, oriented, no ac [place] distress, lying comfortably on the stretcher HEENT: Normocephalic atraumatic, mucous membranes are moist and pink, eyes are clear, normal conjunctiva, vision is grossly intact, Chest: Lungs are clear to auscultation with good air entry, there is no wheezing rhonchi or rales appreciated no accessory muscle use, patient is speaking in complete sentences-no chest wall tenderness to palpation CVS: Regular rate and rhythm S1-S2, no murmurs rubs or gallops, pulses are brisk and equal bilaterally ABD: Soft, nondistended, mild tenderness in the lower abdomen, right greater than left, bowel sounds are normal. Pfannenstiel incision looks normal without any dehiscence or sign of cellulitis Extremities: Moving all extremities, no lower extremity tenderness or swelling noted, negative Homans' sign, pulses are brisk and equal bilaterally Skin: Normal in appearance without rash,pallor, petechiae or purpura Neuro: No focal deficits Constitutional Vital Signs, click to edit/add: Last Vital Signs Temp 97.9 F 10/22/24 20:02 Pulse 99 H 10/22/24 20:02 Resp 18 10/22/24 20:02 BP 103/59 10/22/24 21:30 Pulse Ox 99 10/22/24 21:57 O2 Del Method Room Air 10/22/24 20:02 Course Vital Signs Vital signs: Vital Signs Temperature 97.9 F 10/22/24 20:02 Pulse Rate 99 H 10/22/24 20:02 Respiratory Rate 18 10/22/24 20:02 Blood Pressure 129/66 10/22/24 20:02 Pulse Oximetry 100 10/22/24 20:02 Oxygen Delivery Method Room Air 10/22/24 20:02 Temperature 97.9 F 10/22/24 20:02 Pulse Rate 99 H 10/22/24 20:02 Respiratory Rate 18 10/22/24 20:02 Blood Pressure 103/59 10/22/24 21:30 Pulse Oximetry 99 10/22/24 21:57 Oxygen Delivery Method Room Air 10/22/24 20:02 MDM - Female Genitourinary MDM Narrative Medical decision making narrative: This 38-year-old female who is status post hysterectomy on October 12 presents for evaluation of lower abdominal pain and some vaginal bleeding starting last week. She states she had a fever of 101 last week. She was seen by Dr. Peace and had blood work done. She was told that she was anemic and was started on iron. She has been taking Colace, fiber Gummies and drinking prune juice and has been having bowel movements. She has been using ibuprofen and Percocet as needed for pain. She called Dr. Peace's office earlier today and was referred to the emergency department for further evaluation and treatment. She is well- appearing. She has some tenderness in the lower abdomen with a normal-appearing incision. An IV was placed and a septic workup was ordered. She has a normal white count at 10.4 and hemoglobin is stable at 7.8. Electrolytes are normal with a mildly low potassium at 3.3. Lactic acid is normal at 0.7. CT scan of the abdomen pelvis with IV contrast was ordered and shows postsurgical changes with the anterior abdominal wall with a large hypodense peripherally enhancing collection which contains multiple foci of air concerning for an abscess as well as multiple loculated collections with foci of air within the pelvis concerning for abscesses. There is free pelvic fluid with a small amount of pneumoperitoneum which is seem to be postsurgical. The results of the labs and CT scan were discussed with Dr. Peace. Due to the fact that her vital signs are stable. Labs are normal and hemoglobin is stable. She will be treated with oral antibiotics and close follow-up. She will receive a dose of Cipro and Flagyl in the emergency department and prescriptions for both will be provided to her at the time of discharge. She was encouraged to continue with her stool softeners fiber Gummies and prune juice for constipation. She did not require request anything for pain in the emergency department and will be discharged home once her antibiotics have completed. She was encouraged to return to the emergency department for worsening pain, fever or any concerns. Lab Data Labs: Lab Results 10/22/24 10/22/24 Range/Units 20:30 21:55 WBC 10.4 (4.0-11.0) 10^3/uL RBC 2.49 L (4.20-5.40) 10^6/uL Hgb 7.8 L (12.0-16.0) g/dL Hct 23.2 L* (36.0-48.0) % MCV 93.2 (81.0-99.0) fL MCH 31.3 (26.7-34.0) pg MCHC 33.6 (29.9-35.2) g/dL RDW 13.0 (11.0-15.0) % Plt Count 398 (150-450) 10^3/uL MPV 8.9 L (9.5-13.5) fL Seg Neuts % (Manual) 85.0 H (43.0-75.0) Lymphocytes % (Manual) 9.0 L (20.5-60.0) % Monocytes % (Manual) 6.0 (1.7-12.0) % Eosinophils % (Manual) 0.0 L (0.9-7.0) % Basophils % (Manual) 0.0 L (0.2-2.0) % Neutrophils # (Manual) 8.84 H (1.4-6.5) 10^3/uL Lymphocytes # (Manual) 0.93 L (1.20-3.80) 10^3/uL Monocytes # (Manual) 0.62 (0.30-0.80) 10^3/uL Eosinophils # (Manual) 0.00 (0.00-0.70) 10^3/uL Basophils # (Manual) 0.00 (0.00-0.10) 10^3/uL Hypochromasia 2+ Sodium 131 L (136-145) mmol/L Potassium 3.3 L (3.5-5.1) mmol/L Chloride 98 (98-107) mmol/L Carbon Dioxide 28.2 (21.0-32.0) mmol/L Anion Gap 8.1 BUN 7.0 (7.0-18.0) mg/dL Creatinine 0.57 (0.55-1.02) mg/dL Est GFR ( Amer) >60 (>=60 mL/min/1.73m^2) Est GFR (Non-Af Amer) >60 (>=60 mL/min/1.73m^2) BUN/Creatinine Ratio 12.3 Glucose 98 (74-106) mg/dL Lactate 0.7 (0.4-2.0) mmol/L Calcium 8.8 (8.5-10.1) mg/dL Total Bilirubin 0.6 (0.2-1.0) mg/dL AST 11 L (15-37) U/L ALT 16 (14-59) U/L Alkaline Phosphatase 64 (46-116) U/L Total Protein 6.4 (6.4-8.2) g/dL Albumin 2.9 L (3.4-5.0) g/dL Globulin 3.5 g/dL Albumin/Globulin Ratio 0.8 Urine Color Yellow (YELLOW) Urine Clarity Clear (CLEAR) Urine pH 6.0 (5.0-9.0) Ur Specific [place] <=1.005 A (1.005-1.025) Urine Protein Negative (NEG/TRACE) mg/dL Urine Glucose (UA) Negative (NEGATIVE) mg/dL Urine Ketones 40 A (NEGATIVE) mg/dL Urine Occult Blood Large A (NEGATIVE) Urine Nitrite Negative (NEGATIVE) Urine Bilirubin Negative (NEGATIVE) Urine Urobilinogen >=8.0 (0.2-1.0) EU/dL Ur Leukocyte Esterase Negative (NEGATIVE) Urine RBC 0-2 (0-2) #/HPF Urine WBC 0-2 A (NONE SEEN) #/HPF Ur Squamous Epith Cells Rare (NONE/RARE) #/LPF Urine Crystals None seen (None Seen) #/HPF Urine Bacteria None seen (NONE SEEN) #/HPF Urine Casts None seen (NONE SEEN) #/LPF Urine Mucus None seen (NONE SEEN) Ur Culture Indicated? No Discharge Plan Discharge Chief Complaint: OB/Uterine Contractions Clinical Impression: Abscess of pelvis, Constipation Patient Disposition: Home, Self-Care Time of Disposition Decision: 22:36 Condition: Good Prescriptions / Home Meds: No Action oxcarbazepine 300 mg tablet 450 mg PO BID Xcopri 150 mg tablet 150 mg PO DAILY sumatriptan succinate 50 mg tablet 50 mg PO Q2H PRN (Reason: migraine headache) Pro Fe 180 mg iron capsule Ajovy Autoinjector 225 mg/1.5 mL auto-injector SUBCUT ibuprofen 800 mg tablet 800 mg PO Q8H PRN (Reason: pain) 14 Days Qty: 40 0RF oxycodone-acetaminophen [Percocet] 5-325 mg tablet 1 tab PO Q6H PRN (Reason: pain) 7 Days Qty: 28 0RF Print Language: Mongolian Instructions: Constipation (ED), Abscess (ED) Referrals: Marky Peace DO [Physician, TEMPORARY HELP AGENCY REFERRAL CLERK] - 1 week Physician,Non-Staff, MD [Primary Care Provider] - 1 week
[2024-10-22 21:03] LABS: Lactate/Lactic Acid 0.7 mmol/L (0.4-2.0)
[2024-10-22 21:05] LABS: Hematocrit 23.2 % (36.0-48.0)
[2024-10-22 21:06] LABS: Hypochromasia 2+; Lymphocytes Absolute Manual 0.93 10^3/uL (1.20-3.80); Monocytes Absolute Manual 0.62 10^3/uL (0.30-0.80); Segmented Neut Absolute Manual 8.84 10^3/uL (1.4-6.5)
[2024-10-22 21:10] LABS: Alanine Aminotransferase 16 U/L (14-59); Albumin Globulin Ratio 0.8; Albumin Level 2.9 g/dL (3.4-5.0); Alkaline Phosphatase 64 U/L (46-116); Anion Gap 8.1; Aspartate Amino Transferase 11 U/L (15-37); BUN Creatinine Ratio 12.3; Bilirubin Total 0.6 mg/dL (0.2-1.0); Calcium 8.8 mg/dL (8.5-10.1); Carbon Dioxide 28.2 mmol/L (21.0-32.0); Chloride 98 mmol/L (98-107); Estimated GFR (African America >60 (>=60 mL/min/1.73m^2); Estimated GFR (Non-African Ame >60 (>=60 mL/min/1.73m^2); Globulin 3.5 g/dL; Glucose 98 mg/dL (74-106); Potassium 3.3 mmol/L (3.5-5.1); Sodium 131 mmol/L (136-145); Total Protein 6.4 g/dL (6.4-8.2)
[2024-10-22] MEDS: 0.9 % SODIUM CHLORIDE 1,000 ML 1000 ML IV (21:14)
[2024-10-22 22:04] LABS: Bilirubin Urine NEGATIVE (NEGATIVE); Blood Urine LARGE (NEGATIVE); Clarity Urine CLEAR (CLEAR); Color Urine YELLOW (YELLOW); Glucose Urine UA NEGATIVE (NEGATIVE); Ketones Urine 40 mg/dL (NEGATIVE); Leukocyte Esterase Urine NEGATIVE (NEGATIVE); Nitrite Urine NEGATIVE (NEGATIVE); Protein Urine NEGATIVE (NEG/TRACE); Specific Gravity Urine <=1.005 (1.005-1.025); Urobilinogen Urine >=8.0 EU/dL (0.2-1.0)
[2024-10-22 22:20] LABS: Bacteria Urine NONE SEEN #/HPF (NONE SEEN); Cast Seen? NONE SEEN #/LPF (NONE SEEN); Crystals Seen? None Seen #/HPF (None Seen); Mucus Urine NONE SEEN (NONE SEEN); RBC Urine 0-2 #/HPF (0-2); Squamous Epithelial Cell Urine RARE #/LPF (NONE/RARE); Urine Culture Indicated NO; WBC Urine 0-2 #/HPF (NONE SEEN)
[2024-10-22] MEDS: METRONIDAZOLE/SODIUM CHLORIDE 500 MG/100 ML PREMIX 100 MG IV (22:42)
[2024-10-22] MEDS: CIPROFLOXACIN IN 5 % DEXTROSE 400 MG/200 ML PREMIX 200 MG IV (22:52)
--- NOTE | 2024-10-22 23:26 | PC.NURSE ---
this patient sitting upright awake and alert looking at her cell phone this patient voices no concerns and shows no signs of distress
--- NOTE | 2024-10-23 00:07 | PC.NURSE ---
i gave this patient verbal and written discharge orders along with 2 Rx and this patient voices yes to understanding these. at time of discharge this patient voices no concerns and shows no signs of distress
== END 2024-10-23 00:08 | disposition home or self-care (01) ==
PROVIDERS: Emergency Provider Emergency Medicine
DX: N73.8 Other specified female pelvic inflammatory diseases (principal); K59.00 Constipation, unspecified; R10.31 Right lower quadrant pain; N99.820 Postprocedural hemorrhage of a genitourinary system organ or structure following a genitourinary system procedure
CPT/HCPCS: 36415; 74177; 80053; 81001; 83605; 85007; 85027; 87040; 96365; 96368; 99285; J0744; J1836; Q9967